=== PATIENT | male | born 1955 | race Caucasian/White ===

== ENCOUNTER 2020-04-27 12:19 | Inpatient (IN) | payer BC, SELFPAY ==
[2020-04-27] VITALS (13 sets, daily range): BP systolic 99–147; BP diastolic 57–91; PULSE 61–105; RESP 16–18; TEMP 36.1–37.1; O2SAT 95–100; BMI 29.2
[2020-04-27 12:40] LABS: Basophils Absolute Auto 0.1 K/mm3 (0.0-0.1); Basophils Percent Auto 1.2 % (0.2-1.2); Eosinophils Absolute Auto 0.4 K/mm3 (0-0.3); Eosinophils Percent Auto 4.9 % (0-4.4); Hematocrit 28.1 % (42.0-52.0); Hemoglobin 9.6 g/dL (14.0-18.0); Immature Granulocyte Absolute 0.11 K/mm3 (0.00-0.031); Immature Granulocyte Percent A 1.2 % (0-0.5); Lymphocytes Absolute Auto 2.34 K/mm3 (0.9-3.2); Lymphocytes Percent Auto 25.9 % (18.3-44.2); Mean Corpuscular HGB Conc 34.2 g/dl (32-36); Mean Corpuscular Hemoglobin 32.1 pg (26-34); Mean Platelet Volume 9.4 fl (7.4-10.4); Monocytes Percent Auto 11.3 % (2.6-8.5); Neutrophils Percent Auto 55.5 % (45.5-73.1); Platelet Count Result 315 k/mm3 (150-375); Red Blood Count 2.99 M/mm3 (4.6-6.20); Red Cell Distribution Width 13.6 % (11.5-14.5)
[2020-04-27 12:49] LABS: INR 0.9; Prothrombin Time 12.4 Seconds (11.1-14.7)
[2020-04-27 12:50] LABS: Partial Thromboplastin Time 23.5 SECONDS (22.3-36.8)
[2020-04-27 12:54] LABS: Alanine Aminotransferase 20 U/L (4-50); Alkaline Phosphatase 70 U/L (38-126); Anion Gap 8 mmol/L (8-16); Aspartate Amino Transferase 30 U/L (17-59); Bilirubin,Total 0.4 mg/dL (0.2-1.3); Blood Urea Nitrogen 19 mg/dL (9-20); Calcium 9.1 mg/dL (8.4-10.2); Carbon Dioxide 27 mmol/L (22-30); Chloride 102 mmol/L (98-107); Estimated CRCL calculation 93 ml/min; Estimated Glomerular Filt Rate > 60; Glucose 100 mg/dL (75-110); Potassium 4.1 mmol/L (3.4-5.0); Sodium 137 mmol/L (137-145)
[2020-04-27] MEDS: SODIUM CHLORIDE 0.9% IV 1,000 ML 999 ML ×2 (13:37→16:12)
--- NOTE | 2020-04-27 15:41 | ED.DIZZY ---
HPI - Dizziness General Chief Complaint: Dizziness Stated Complaint: dizziness, bloody stools Time Seen by Provider: 04/27/20 12:48 Source: patient and family Mode of arrival: ambulatory Limitations: no limitations History of Present Illness HPI Narrative: 64-year-old with no major medical problems here with complaints of rectal bleeding on and off for past few days however for last 2 days he has not had any further bleeding. However since this morning patient complains of dizziness and every time he stands he states that he is tachycardic. Patient reports that he had a colonoscopy done by Dr. Inman in 2017 which was unremarkable. He denies any dark stools or any abdominal pain or chest pain at this time. MD elicited complaint: dizziness Timing: gradual onset Severity: moderate Description: lightheadedness Context: change in body position Exacerbating factors: change in body position and exertion Associated symptoms: denies other symptoms Related Data Home Medications Medication Instructions Recorded Confirmed paroxetine HCl mg PO 04/27/20 prednisone 04/27/20 Allergies Allergy/AdvReac Type Severity Reaction Status Date / Time No Known Allergies Allergy Unknown Verified 04/27/20 12:46 Review of Systems Review of Systems: All systems reviewed & are unremarkable except as noted in HPI and below Constitutional: Constitutional: Reports no additional constitutional complaints Eyes: Eyes: Reports no additional eye complaints ENT: Reports system reviewed and no additional complaints, except as documented Cardiovascular: Cardiovascular: Reports no additional cardiovascular complaints Respiratory: Respiratory: Reports no additional respiratory complaints Gastrointestinal: Gastrointestinal: Reports as per HPI Musculoskeletal: Musculoskeletal: Reports no additional musculoskeletal complaints Neurologic: Reports system reviewed and no additional complaints, except as documented Psychiatric: Psychiatric: Reports no additional psychiatric complaints Hematologic/Lymphatic: Hematologic/Lymphatic: Reports no additional hematologic/lymphatic complaints Allergic/Immunologic: Allergic/Immunologic: Reports no additional allergic/immunologic complaints PMFSH Social History Social History Gender identity (if verbalized by the patient): Male Exam Narrative: Exam Narrative: GENERAL: Well-appearing, well-nourished, and in no acute distress. HEAD: Normocephalic, atraumatic. EYES: PERRLA and EOMI. NECK: Supple. CHEST: Clear to auscultation. No respiratory distress. HEART: Regular rate and rhythm. No murmur heard. Normal peripheral pulses. ABDOMEN: Soft, nontender, nondistended, normal active bowel sounds. EXTREMITIES: Normal range of motion. No edema. SKIN: Warm, dry, no rash. NEURO: No focal deficits. Alert and oriented x3. PSYCH: Normal mood and affect. Course Course Emergency Course: Patient still remained orthostatic even after liter of fluid. He does feel dizzy when he stands up. We will admit him to the hospital for hydration consult GI. Vital Signs Vital signs: Vital Signs Temperature 36.1 C L 04/27/20 12:23 Pulse Rate 105 H 04/27/20 12:23 Respiratory Rate 18 04/27/20 12:23 Blood Pressure 136/81 04/27/20 12:23 Pulse Oximetry 100 04/27/20 12:23 Temperature 36.1 C L 04/27/20 12:23 Pulse Rate 101 H 04/27/20 15:01 Respiratory Rate 16 04/27/20 14:57 Blood Pressure 99/69 L 04/27/20 15:01 Pulse Oximetry 98 04/27/20 14:57 MDM - Dizziness Lab Data Result diagrams: 04/27/20 12:32 04/27/20 12:32 Labs: Lab Results 04/27/20 04/27/20 04/27/20 Range/Units 12:32 12:32 12:32 WBC 9.0 (4.5-10.0) K/mm3 RBC 2.99 L (4.6-6.20) M/mm3 Hgb 9.6 L (14.0-18.0) g/dL Hct 28.1 L (42.0-52.0) % MCV 94.0 (80-100) fl MCH 32.1 (26-34) pg MCHC 34.2 (32-36) g/dl RD
[2020-04-27 16:22] LABS: Hematocrit 24.4 % (42.0-52.0); Hemoglobin 8.3 g/dL (14.0-18.0)
--- NOTE | 2020-04-27 16:28 | PC.NURSE ---
This patient, Brice Manrique, was admitted to Medical Room 344-01. Patient/family oriented to hospital policies and general routines including ID bracelet, bed and alarms, visiting hours, pain management, procedures, bathroom and other care routines, personal items, smoking policy, room service/diet, and visiting hours. Information on how to activate the Rapid Response Team has been discussed. Patient/Family are encouraged to report perceived risks to care and to ask questions if they do not understand what they are told or what they should do.
[2020-04-27] MEDS: SODIUM CHLORIDE 0.9% IV 1,000 ML 125 ML IV CONT (17:48)
[2020-04-27] MEDS: ONDANSETRON INJ 4 MG/2 ML VIAL IV PUSH (19:23)
[2020-04-27 21:52] LABS: Hemoglobin 6.8 g/dL (14.0-18.0)
[2020-04-27 21:53] LABS: Hematocrit 20.5 % (42.0-52.0)
[2020-04-27] MEDS: SODIUM CHLORIDE 0.9% IV 250 ML 30 ML IV CONT (22:35)
[2020-04-28] VITALS (16 sets, daily range): BP systolic 109–163; BP diastolic 64–95; PULSE 67–87; RESP 14–18; TEMP 36.3–37.1; O2SAT 96–100
[2020-04-28 04:30] LABS: Basophils Absolute Auto 0.1 K/mm3 (0.0-0.1); Basophils Percent Auto 0.9 % (0.2-1.2); Eosinophils Absolute Auto 0.4 K/mm3 (0-0.3); Eosinophils Percent Auto 4.8 % (0-4.4); Hematocrit 22.8 % (42.0-52.0); Hemoglobin 7.7 g/dL (14.0-18.0); Immature Granulocyte Absolute 0.09 K/mm3 (0.00-0.031); Immature Granulocyte Percent A 1.2 % (0-0.5); Lymphocytes Absolute Auto 1.78 K/mm3 (0.9-3.2); Lymphocytes Percent Auto 23.7 % (18.3-44.2); Mean Corpuscular HGB Conc 33.8 g/dl (32-36); Mean Corpuscular Volume 94.6 fl (80-100); Mean Platelet Volume 8.7 fl (7.4-10.4); Monocytes Absolute Auto 0.8 K/mm3 (0.1-0.6); Monocytes Percent Auto 10.1 % (2.6-8.5); Neutrophils Absolute Auto 4.4 K/mm3 (1.3-6.7); Neutrophils Percent Auto 59.3 % (45.5-73.1); Platelet Count Result 224 k/mm3 (150-375); Red Blood Count 2.41 M/mm3 (4.6-6.20); Red Cell Distribution Width 14.4 % (11.5-14.5); White Blood Count 7.5 K/mm3 (4.5-10.0)
[2020-04-28 04:47] LABS: Anion Gap 3 mmol/L (8-16); Blood Urea Nitrogen 16 mg/dL (9-20); Calcium 7.7 mg/dL (8.4-10.2); Carbon Dioxide 25 mmol/L (22-30); Chloride 108 mmol/L (98-107); Estimated CRCL calculation 93 ml/min; Estimated Glomerular Filt Rate > 60; Glucose 104 mg/dL (75-110); Sodium 136 mmol/L (137-145)
[2020-04-28] MEDS: SODIUM CHLORIDE 0.9% IV 1,000 ML 125 ML IV CONT (05:56)
--- NOTE | 2020-04-28 08:35 | PM.IMHP ---
H&P: HPI History of Present Illness Date/Time: 04/28/20 08:35 Chief Complaint: Rectal Bleeding Narrative: Brice Manrique is a 64 year old male with history of PMR (on chronic low dose prednisone) who presented to the ED from home on 04/27 with complaints of rectal bleeding since 04/22. Patient states that he had noticed large amounts of bright red blood with each BM starting this past Thursday and Thursday, with it lessoning in amount thereafter. He has two BMs a day, regularly. He states he noticed after Thursday, he continued to have diarrhea with blood and had noticed 1-2 episodes of what he though was dark, tarry stools as well. He also noted becoming tachycardic and dizzy when changing positions, particularly when standing. He stated he discussed with his PCP who tried to arrange for him to get a Colonoscopy, but was unable to make an appointment until May, at which point, prompted him to come into the ER on 04/27 given his continued bleeding and dizziness. He denies any associated abdominal pain, n/v, loss of consciousness. He notes that took NSAIDS (he thinks ibuprofen 400-600 mg daily) regularly up until fairly recently when he was sent to see a heating fixture tender for his PMR. He denies any alcohol use. He denies personal or family history of IBD or colon cancer. His last colonoscopy was in 2018 which he states only polyps were found and removed; denies being told that he had internal/external hemorrhoids or other abnormalities like diverticulosis. No recent change in diet nor recent change in home medications. No other associated symptoms. He is still noticing blood in his stool this morning. He denies f/c/s, headaches, changes in v/h, cp/palpitations, sob/cough, n/v, dysuria, hematuria, cloudy urine, calf pain/swelling. While in the ED, he was found to have hgb of 9.6, then 8.3. He was orthostatic in the ER and symptomatic thus admitted to the hospitalist service for further evaluation. GI (Dr. Maciel) was consulted from the ER for further evaluation. No imaging was done in the ED. Of note, patient's Hgb dropped to 6.8 after arrival to the medical floor and was transfused 1 u pRBC at around 2230 on 04/27. Hgb this morning 7.7. Review of Systems Review of Systems: All systems reviewed & are unremarkable except as noted in HPI and below PMFSH Past Medical History Medical History (Updated 04/28/20 @ 08:51 by Blake Ragland PA-C) PMR (polymyalgia rheumatica) Surgical History Surgical History (Updated 04/28/20 @ 08:51 by Blake Ragland PA-C) History of appendectomy ~1979 History of cholecystectomy ~[id number] Social History Social History Social History: Patient lives at home with his , Prabha, whom he designates as his surrogate MDM. He wishes to be Full Code. His PCP is Dr. Crespo Smoking status: Never smoker Alcohol intake: never Substance use: never Gender identity (if verbalized by the patient): Male Spiritual care concerns: No Meds Home Medications and Allergies Home Medications Medication Instructions Recorded Confirmed Type paroxetine HCl 20 mg PO HS 04/27/20 04/27/20 History prednisone 2.5 mg PO HS 04/27/20 04/27/20 History Allergies Allergy/AdvReac Type Severity Reaction Status Date / Time No Known Allergies Allergy Unknown Verified 04/27/20 12:46 Vital Signs Vital Signs - 24 hr 04/27/20 12:23 04/27/20 13:21 04/27/20 13:23 Temperature 97.0 F L Pulse Rate 105 H 65 72 Respiratory Rate 18 Blood Pressure 136/81 134/88 132/91 H Pulse Oximetry 100 04/27/20 13:25 04/27/20 14:57 04/27/20 15:00 Temperature Pulse Rate 85 78 77 Respiratory Rate 16 Blood Pressure 106/79 117/82 117/72 Pulse Oximetry 98 04/27/20 15:01 04/27/20 16:13 04/27/20 16:30 Temperature 97.4 F L Pulse Rate 101 H 64 68 Respiratory Rate 16 16 Blood Pressure 99/69 L 132/90 147/89 H Pulse Oximetry 97 100 04/27/20 20:
[2020-04-28] MEDS: PARoxetine 20 MG TABLET PO ×2 (09:41→20:49)
--- NOTE | 2020-04-28 11:36 | WPDGICN ---
Assessment and Plan Assessment and plan (1) GI bleed: Code(s): K92.2 - Gastrointestinal hemorrhage, unspecified Status: Acute Assessment and Plan: received blood transfusion, still ongoing bleeding will proceed with egd (recent use of nsaid's and orthostatic) with colonoscopy in the morning (also need to rule out lower gib- no report of diverticulosis per patient) protonix for now and npo after midnight, will order bowel prep later (2) Acute blood loss anemia: Code(s): D62 - Acute posthemorrhagic anemia Status: Acute Assessment and Plan: continue to monitor h/h, already received blood transfusion (3) Orthostatic hypotension: Code(s): I95.1 - Orthostatic hypotension Status: Acute Assessment and Plan: due to gib (4) PMR (polymyalgia rheumatica): Code(s): M35.3 - Polymyalgia rheumatica Status: Acute Assessment and Plan: on low dose steroids, by primary team (5) Adenomatous colon polyp: Code(s): D12.6 - Benign neoplasm of colon, unspecified Status: Acute GI Consult Note Consult date/time: 04/28/20 11:36 Reason for consult: gib HPI: Brice Manrique is a 64 year old male with history of PMR using low dose prednisone (tried leflunomide but did not tolerate and about 4 weeks ago used nsaid's twice daily but discontinued about 2 weeks). He came to ER with almost 6 days of bright red blood per rectum then also noted lose stool, he went to see PCP who arranged to have colonoscopy as outpatient (his last one 2018 at [place] with Dr Madrid that removed polyps and advised to follow up in 2 years). Last few days also has been feeling tachycardic and dizzy when changing positions, particularly when standing. Hb in the ER 9.6, then 6.8 and received blood transfusion last night. He has not had EGD. Still had blood in stools last time used restroom. BUN and liver enzymes normal. Review of Systems Constitutional: Constitutional: Reports fatigue Eyes: Eyes: Reports no additional eye complaints ENT: Reports Normal hearing present Cardiovascular: Cardiovascular: Denies chest pain Respiratory: Respiratory: Denies cough Gastrointestinal: Gastrointestinal: Reports melena and Reports hematochezia Genitourinary: Genitourinary: Denies dysuria Musculoskeletal: Musculoskeletal: Reports arthralgias (chronic, h/o PMR) Integumentary/Breasts: Skin/Breast: Denies pruritus Neurologic: Denies numbness Psychiatric: Psychiatric: Denies anxiety [facility] Past Medical History Medical History (Updated 04/28/20 @ 11:45 by Alonso aGutam MD) Adenomatous colon polyp PMR (polymyalgia rheumatica) Surgical History Surgical History (Updated 04/28/20 @ 08:51 by Blake Ragland PA-C) History of appendectomy ~1979 History of cholecystectomy ~[id number] Social History Social History Social History: Patient lives at home with his , Prabha, whom he designates as his surrogate MDM. He wishes to be Full Code. His PCP is Dr. Crespo Smoking status: Never smoker Alcohol intake: never Substance use: never Gender identity (if verbalized by the patient): Male Spiritual care concerns: No Meds Home Medications and Allergies Home Medications Medication Instructions Recorded Confirmed Type paroxetine HCl 20 mg PO HS 04/27/20 04/27/20 History prednisone 2.5 mg PO HS 04/27/20 04/27/20 History Allergies Allergy/AdvReac Type Severity Reaction Status Date / Time No Known Allergies Allergy Unknown Verified 04/27/20 12:46 Vital Signs Vital Signs - 24 hr 04/27/20 12:23 04/27/20 13:21 04/27/20 13:23 Temperature 97.0 F L Pulse Rate 105 H 65 72 Respiratory Rate 18 Blood Pressure 136/81 134/88 132/91 H Pulse Oximetry 100 04/27/20 13:25 04/27/20 14:57 04/27/20 15:00 Temperature Pulse Rate 85 78 77 Respiratory Rate 16 Blood Pressure 106/79 117/82
--- NOTE | 2020-04-28 12:19 | WPDANESEPP ---
Anes - Eval Pre Procedure Procedure: EGD/Colonoscopy Date/Time: 04/28/20 12:19 Surgeon: Fam Preop Diagnosis: GI Bleed Pre Op Diagnosis: dizziness/orthostatic hypotension/rectal bleed Patient Data Age: 64 Gender: M Height: 6 ft 1 in Weight: 100.5 kg Last Vital Signs Temp 36.8 C 04/28/20 04:26 Pulse 82 04/28/20 04:26 Resp 16 04/28/20 04:26 BP 120/76 04/28/20 08:14 Pulse Ox 96 04/28/20 04:26 Allergies Allergy/AdvReac Type Severity Reaction Status Date / Time No Known Allergies Allergy Unknown Verified 04/27/20 12:46 Home Medications Medication Instructions Recorded Confirmed Type paroxetine HCl 20 mg PO HS 04/27/20 04/27/20 History prednisone 2.5 mg PO HS 04/27/20 04/27/20 History Laboratory Tests 04/27/20 04/27/20 04/27/20 12:32 12:32 12:32 WBC 9.0 K/mm3 K/mm3 (4.5-10.0) RBC 2.99 M/mm3 L M/mm3 (4.6-6.20) Hgb 9.6 g/dL L g/dL (14.0-18.0) Hct 28.1 % L % (42.0-52.0) MCV 94.0 fl fl (80-100) MCH 32.1 pg pg (26-34) MCHC 34.2 g/dl g/dl (32-36) RDW 13.6 % % (11.5-14.5) Plt Count 315 k/mm3 k/mm3 (150-375) MPV 9.4 fl fl (7.4-10.4) Immature Gran % (Auto) 1.2 % H % (0-0.5) Neut % (Auto) 55.5 % % (45.5-73.1) Lymph % (Auto) 25.9 % % (18.3-44.2) [place] % (Auto) 11.3 % H % (2.6-8.5) Eos % (Auto) 4.9 % H % (0-4.4) Baso % (Auto) 1.2 % % (0.2-1.2) Lymph # (Auto) 2.34 K/mm3 K/mm3 (0.9-3.2) [place] # (Auto) 1.0 K/mm3 H K/mm3 (0.1-0.6) Eos # (Auto) 0.4 K/mm3 H K/mm3 (0-0.3) Baso # (Auto) 0.1 K/mm3 K/mm3 (0.0-0.1) Abs Immat Gran (auto) 0.11 K/mm3 H K/mm3 (0.00-0.031) Absolute Neuts (auto) 5.0 K/mm3 K/mm3 (1.3-6.7) Absolute Nucleated RBC 0.0 K/mm3 K/mm3 (0.0-0.012) Nucleated RBC % 0.0 % % (0.0-0.2) PT 12.4 Seconds Seconds (11.1-14.7) INR 0.9 APTT 23.5 SECONDS SECONDS (22.3-36.8) Sodium 137 mmol/L mmol/L (137-145) Potassium 4.1 mmol/L mmol/L (3.4-5.0) Chloride 102 mmol/L mmol/L (98-107) Carbon Dioxide 27 mmol/L mmol/L (22-30) Anion Gap 8 mmol/L mmol/L (8-16) BUN 19 mg/dL mg/dL (9-20) Creatinine 0.80 mg/dL mg/dL (0.7-1.3) Estim Creat Clear Calc 93 ml/min ml/min Estimated GFR > 60 (59 - ) Glucose 100 mg/dL mg/dL (75-110) Calcium 9.1 mg/dL mg/dL (8.4-10.2) Total Bilirubin 0.4 mg/dL mg/dL (0.2-1.3) AST 30 U/L U/L (17-59) ALT 20 U/L U/L (4-50) Alkaline Phosphatase 70 U/L U/L (38-126) Total Protein 7.0 g/dL g/dL (6.3-8.2) Albumin 4.0 g/dL g/dL (3.5-5.1) Blood Type Antibody Screen Crossmatch 04/27/20 04/27/20 04/27/20 12:32 16:14 21:46 WBC RBC Hgb 8.3 g/dL L g/dL 6.8 g/dL L* g/dL (14.0-18.0) (14.0-18.0) Hct 24.4 % L % 20.5 % L* % (42.0-52.0) (42.0-52.0) MCV MCH MCHC RDW Plt Count MPV Immature Gran % (Auto) Neut % (Auto) Lymph % (Auto) [place] % (Auto) Eos % (Auto) Baso % (Auto) Lymph # (Auto) [place] # (Auto) Eos # (Auto) Baso # (Auto) Abs Immat Gran (auto) Absolute Neuts (auto) Absolute Nucleated RBC Nucleated RBC % PT INR APTT Sodium Potassium Chloride Carbon Dioxide Anion Gap BUN Creatinine Estim Creat Clear Calc Estimated GFR
[2020-04-28 12:34] LABS: Hematocrit 21.1 % (42.0-52.0); Hemoglobin 7.1 g/dL (14.0-18.0)
[2020-04-28] MEDS: SODIUM CHLORIDE 0.9% IV 1,000 ML 100 ML IV CONT (15:08)
[2020-04-28] MEDS: PEG (High)/E-LYTE SOLN 4,000 ML BTL 4000 ML PO (15:08)
[2020-04-28] MEDS: SODIUM CHLORIDE 0.9% IV 250 ML 30 ML IV CONT (17:26)
[2020-04-28] MEDS: PANTOPRAZOLE SODIUM IV 40 MG VIAL IV PUSH (20:49)
[2020-04-28] MEDS: ONDANSETRON INJ 4 MG/2 ML VIAL IV PUSH (20:49)
[2020-04-28 21:55] LABS: Hematocrit 25.7 % (42.0-52.0); Hemoglobin 8.6 g/dL (14.0-18.0)
[2020-04-29] VITALS (7 sets, daily range): BP systolic 97–124; BP diastolic 62–82; PULSE 60–70; RESP 16–22; TEMP 36.3–36.6; O2SAT 95–100
[2020-04-29 00:47] LABS: Hematocrit 22.8 % (42.0-52.0); Hemoglobin 7.7 g/dL (14.0-18.0)
[2020-04-29] MEDS: MAGNESIUM CITRATE 300 ML BTL PO (02:55)
[2020-04-29] MEDS: SODIUM CHLORIDE 0.9% IV 1,000 ML 100 ML IV CONT (06:01)
[2020-04-29 06:18] LABS: Basophils Absolute Auto 0.1 K/mm3 (0.0-0.1); Basophils Percent Auto 1.3 % (0.2-1.2); Eosinophils Absolute Auto 0.4 K/mm3 (0-0.3); Eosinophils Percent Auto 5.9 % (0-4.4); Hematocrit 25.1 % (42.0-52.0); Hemoglobin 8.2 g/dL (14.0-18.0); Immature Granulocyte Absolute 0.05 K/mm3 (0.00-0.031); Immature Granulocyte Percent A 0.8 % (0-0.5); Lymphocytes Absolute Auto 1.39 K/mm3 (0.9-3.2); Lymphocytes Percent Auto 23.3 % (18.3-44.2); Mean Corpuscular HGB Conc 32.7 g/dl (32-36); Mean Corpuscular Hemoglobin 31.1 pg (26-34); Mean Corpuscular Volume 95.1 fl (80-100); Mean Platelet Volume 9.3 fl (7.4-10.4); Monocytes Absolute Auto 0.8 K/mm3 (0.1-0.6); Monocytes Percent Auto 13.6 % (2.6-8.5); Neutrophils Absolute Auto 3.3 K/mm3 (1.3-6.7); Neutrophils Percent Auto 55.1 % (45.5-73.1); Platelet Count Result 218 k/mm3 (150-375); Red Blood Count 2.64 M/mm3 (4.6-6.20); Red Cell Distribution Width 15.4 % (11.5-14.5)
[2020-04-29 06:41] LABS: Anion Gap 5 mmol/L (8-16); Blood Urea Nitrogen 8 mg/dL (9-20); Calcium 8.3 mg/dL (8.4-10.2); Carbon Dioxide 24 mmol/L (22-30); Chloride 110 mmol/L (98-107); Estimated CRCL calculation 93 ml/min; Estimated Glomerular Filt Rate > 60; Glucose 102 mg/dL (75-110); Magnesium 2.3 mg/dL (1.6-2.3); Potassium 3.8 mmol/L (3.4-5.0); Sodium 139 mmol/L (137-145)
[2020-04-29] MEDS: LACTATED RINGERS 1,000 ML 150 ML IV CONT (07:14)
--- NOTE | 2020-04-29 07:14 | PC.NURSE ---
GI here to transport patient for procedure. 0705.
--- NOTE | 2020-04-29 08:04 | WPDANESEFPP ---
Anes - Eval Final PreProcedure Day of Procedure 04/29/20 08:04 Patient weight: overweight Heart: regular rate and rhythm Lungs: clear to auscultation Airway: Mallampati scale class II Neurological: alert and oriented Last oral intake: >/= 8 hours ASA classification: III Emergent: no Anesthetic plan: proceed Anesthesia type and monitoring: general GIVS and standard monitoring Informed Consent: The patient's anesthetic plan and its attendant risks and benefits were discussed with the patient/family/POA. Questions were solicited and answers provided to the satisfaction of the patient/family/POA.
[2020-04-29 12:15] LABS: Hematocrit 25.2 % (42.0-52.0); Hemoglobin 8.3 g/dL (14.0-18.0)
--- NOTE | 2020-04-29 12:20 | PM.DS ---
DS: Admitting Diagnosis Admitting Diagnosis Admitting Diagnosis: GI bleed, acute blood loss anemia DS: Discharge Diagnosis Discharge Diagnosis (1) GI bleed: Code(s): K92.2 - Gastrointestinal hemorrhage, unspecified Status: Acute Assessment and Plan: Patient has rectal bleeding with what sounds like episode(s) of melena as well. He recently stopped taking NSAIDs regularly but could not tell me a date. On chronic steroids for PMR. He denies any alcohol use. Last colonoscopy was 2017 and only found benign polyps per patient. Dr. Maciel consulted from ED. He was symptomatically orthostatic in ED; no longer orthostatic. EGD/Colonoscopy performed 04/[address] Maciel - two polyps removed, and multiple diverticula and tiny internal hemorrhoid in rectum; diverticula felt to be most likely source of bleeding; EGD unremarkable. H&H has been stable since this morning. No reports of further bleeding per patient. Okay for discharge from GI standpoint. discharge home today F/u with PCP and GI per recommendations Rec no nsaids High fiber diet recommended (2) Acute blood loss anemia: Code(s): D62 - Acute posthemorrhagic anemia Status: Acute Assessment and Plan: Transfused 2 u pRBC during stay. Patient's hgb has dropped to 6.8 on 04/27 and was transfused 1 u pRBC 04/27. Hgb dropped to 7.1 afternoon of 04/28 and was transfused 1 more unit pRBC 04/28. H&H now stable at 8.3/25.2 this afternoon. No reports of further bleeding. Likely secondary to above okay for discharge from GI standpoint Will do H&H in 1 week. Further care per PCP (3) PMR (polymyalgia rheumatica): Code(s): M35.3 - Polymyalgia rheumatica Status: Acute Assessment and Plan: On chronic low dose prednisone Will resume per GI rec DS: Summary Hospital Course Reason for hospitalization: Acute blood loss anemia due to GI bleed Hospital Course: Date of arrival: 04/27/20 Date of discharge: 04/29/20 From H&P on 04/28/20: Brice Manrique is a 64 year old male with history of PMR (on chronic low dose prednisone) who presented to the ED from home on 04/27 with complaints of rectal bleeding since 04/22. Patient states that he had noticed large amounts of bright red blood with each BM starting this past Thursday and Thursday, with it lessoning in amount thereafter. He has two BMs a day, regularly. He states he noticed after Thursday, he continued to have diarrhea with blood and had noticed 1-2 episodes of what he though was dark, tarry stools as well. He also noted becoming tachycardic and dizzy when changing positions, particularly when standing. He stated he discussed with his PCP who tried to arrange for him to get a Colonoscopy, but was unable to make an appointment until May, at which point, prompted him to come into the ER on 04/27 given his continued bleeding and dizziness. He denies any associated abdominal pain, n/v, loss of consciousness. He notes that took NSAIDS (he thinks ibuprofen 400-600 mg daily) regularly up until fairly recently when he was sent to see a calender machine operator helper for his PMR. He denies any alcohol use. He denies personal or family history of IBD or colon cancer. His last colonoscopy was in 2018 which he states only polyps were found and removed; denies being told that he had internal/external hemorrhoids or other abnormalities like diverticulosis. No recent change in diet nor recent change in home medications. No other associated symptoms. He is still noticing blood in his stool this morning. He denies f/c/s, headaches, changes in v/h, cp/palpitations, sob/cough, n/v, dysuria, hematuria, cloudy urine, calf pain/swelling. While in the ED, he was found to have hgb of 9.6, then 8.3. He was orthostatic in the ER and symptomatic thus admitted to the hospitalist service for further evaluation. GI (Dr. Maciel) was c
== END 2020-04-29 13:26 | disposition home or self-care (01) | DRG 378 ==
LOC: ANHED 16:04 → ANH3MED 16:13
PROVIDERS: Internal Medicine Gastroenterology; Physician Assistant; Admitting Provider Internal Medicine; Emergency Provider Family Medicine; PCP Internal Medicine; Visit Provider Internal Medicine
PROC: 0DJ08ZZ Inspection of Upper Intestinal Tract, Via Natural or Artificial Opening Endoscopic (ICD-10-PCS; CPT 43235; principal; 2020-04-29 08:00)
DX: K57.31 Diverticulosis of large intestine without perforation or abscess with bleeding (principal); D62 Acute posthemorrhagic anemia; I95.1 Orthostatic hypotension; M35.3 Polymyalgia rheumatica; D12.6 Benign neoplasm of colon, unspecified; K64.8 Other hemorrhoids; Z90.49 Acquired absence of other specified parts of digestive tract
CPT/HCPCS: 36415; 36430; 80048; 80053; 83735; 85014; 85018; 85025; 85610; 85730; 86850; 86900; 86901; 86923; 88305; 96361; 96374; 99285; A9270; C9113; G0378; J2370; J2405; J2704; J7030; J7050; J7120; P9016

== ENCOUNTER 2022-07-07 08:30 | Outpatient (RCR) | payer BC, MEDICARE, OTHER, SELFPAY | END 2022-07-09 14:51 | disposition home or self-care (01) | LOC: ANHCPREHAB 08:30 | PROVIDERS: PCP Internal Medicine | DX: Z95.5 Presence of coronary angioplasty implant and graft (principal) | CPT/HCPCS: 93798 ==

== ENCOUNTER 2023-12-14 13:52 | Outpatient (CLI) | payer MEDICARE, OTHER, SELFPAY ==
[2023-12-14 14:59] LABS: Basophils Absolute Auto 0.1 K/mm3 (0.0-0.1); Basophils Percent Auto 0.9 % (0.2-1.2); Eosinophils Absolute Auto 0.4 K/mm3 (0-0.3); Eosinophils Percent Auto 6.7 % (0-4.4); Hematocrit 44.8 % (42.0-52.0); Hemoglobin 15.7 g/dL (14.0-18.0); Immature Granulocyte Absolute 0.01 K/mm3 (0.00-0.031); Immature Granulocyte Percent A 0.2 % (0-0.5); Lymphocytes Absolute Auto 1.99 K/mm3 (0.9-3.2); Lymphocytes Percent Auto 30.9 % (18.3-44.2); Mean Corpuscular Hemoglobin 33.5 pg (26-34); Mean Corpuscular Volume 95.7 fl (80-100); Mean Platelet Volume 10.4 fl (7.4-10.4); Monocytes Absolute Auto 0.5 K/mm3 (0.1-0.6); Monocytes Percent Auto 7.6 % (2.6-8.5); Neutrophils Absolute Auto 3.5 K/mm3 (1.3-6.7); Neutrophils Percent Auto 53.7 % (45.5-73.1); Platelet Count Result 232 k/mm3 (150-375); Red Blood Count 4.68 M/mm3 (4.6-6.20); Red Cell Distribution Width 12.6 % (11.5-14.5); White Blood Count 6.4 K/mm3 (4.5-10.0)
[2023-12-14 15:16] LABS: Rheumatoid Factor < 12.0 IU/ML (<12)
[2023-12-14 15:17] LABS: CRP < 0.5 mg/dL (<1.0); Uric Acid 7.4 mg/dL (3.5-8.5)
[2023-12-14 17:34] LABS: Erythrocyte Sedimentation Rate 6 mm/hr (0-20)
[2023-12-16 14:19] LABS: Anti Cyclic Citrullinated Pept <16 UNITS
== END 2023-12-14 13:53 | disposition home or self-care (01) ==
PROVIDERS: PCP Hospitalist; Visit Provider Orthopaedic Surgery
DX: M79.89 Other specified soft tissue disorders (principal)
CPT/HCPCS: 36415; 84550; 85025; 85652; 86038; 86039; 86140; 86200; 86430

== ENCOUNTER 2023-12-16 12:22 | Outpatient (CLI) | payer MEDICARE, OTHER, SELFPAY ==
--- NOTE | 2023-12-16 12:42 | ECG_ITS ---
Test Date: 2023-12-16 12:55:05 Measurements Intervals [place] Rate: 52 P: 55 [place]: 177 QRS: -28 QRSD: 122 T: 139 QT: 412 QTc: 384 Interpretive Statements SINUS BRADYCARDIA BORDERLINE LEFT AXIS DEVIATION [QRS AXIS < -20] MODERATE INTRAVENTRICULAR CONDUCTION DELAY [110+ ms QRS DURATION] MINIMAL VOLTAGE CRITERIA FOR LVH, CONSIDER NORMAL VARIANT [MEETS CRITERIA IN ONE OF: R(aVL), S(V1), R(V5), R(V5/V6)+S(V1)] ST DEVIATION AND MODERATE T-WAVE ABNORMALITY, CONSIDER LATERAL ISCHEMIA [-0.1+ mV T WAVE IN I/aVL/V5/V6] No previous ECG available for comparison Electronically Signed On 12-16-2023 17:13:37 CDT by Chani Sherwood M.D.
== END 2023-12-16 12:23 | disposition home or self-care (01) ==
PROVIDERS: PCP Hospitalist; Visit Provider Orthopaedic Surgery
DX: I25.10 Atherosclerotic heart disease of native coronary artery without angina pectoris (principal); Z01.818 Encounter for other preprocedural examination; I45.9 Conduction disorder, unspecified
CPT/HCPCS: 93005

== ENCOUNTER 2023-12-17 02:38 | Day surgery (SDC) | payer MEDICARE, OTHER, SELFPAY ==
[2023-12-15 14:11] VITALS: BMI 30.8
--- NOTE | 2023-12-15 14:39 | PC.NURSE ---
Report to the Outpatient Waiting Room, entrance under the green pavilion located off [facility], at time ____09:30am___ on date _12/17/23 . Planned Procedure Time: _11:30am . Time changes happen often and if your time is changed the preop area will call you the afternoon before. - You and your visitor will be asked to self-screen and do not enter if you have any COVID symptoms. - A mask is optional within the hospital at this time. Patients may have clear liquids (water, carbonated beverages, clear teas, apple juice) until 3 hours prior to surgery ( with a maximum of 20 ounces. - No food from midnight until time of surgery Take the following medications with a SIP of water the morning of surgery: ____Amlodipine DO NOT STOP ANY OF YOUR OTHER PRESCRIPTION MEDICATIONS PRIOR TO SURGERY ?EXCEPT THE FOLLOWING Medications to discontinue per physician Hold Plavix 7 days prior to surgery per Dr. Lopez _ Date to take last dose 12/09/23 Please no make-up, nail divehi, hairspray, perfume, deodorant, or body powder the day of surgery. No jewelry (including any body piercings) or valuables the day of surgery, leave them at home. Please take a shower or bath the night before, or the morning of, surgery with an antibacterial soap. Wear comfortable, loose fitting clothing. - Jewelry must be removed prior to entering the operating room. Rings and piercings that are not removed may be cut off. - The hospital will not accept responsibility for valuables. - Please leave all valuables, including medications, at home the day of surgery. If you are going home after surgery, a licensed refrigerated national truck driver must drive you home. - NO public transportation without another adult if you receive anesthesia. - We recommend that an adult stay with you for 24 hours following discharge. - We also recommend that you do not drive, make important decision, drink alcoholic beverages, or take any drugs that were not prescribed by your health care provider for at least 24 hours after your discharge time. Follow any additional instructions given to you from your surgeon. If you or anyone in your household have experienced Covid symptoms in the past week, please notify your surgeon or the nurse liaison at the phone number below for possible testing. Telephone instructions given to _patient and asked if any additional questions and then verbalized understanding. Patient advised to call surgeon office or pre surgery nurse liaison [phone] if any additional questions.
--- NOTE | 2023-12-16 12:50 | PM.IMHP ---
H&P: HPI History of Present Illness Date/Time: 12/16/23 12:50 Chief Complaint: Right carpal tunnel syndrome Narrative: 68-year-old male who presents today for a right carpal tunnel release. He has been having symptoms of numbness and tingling in both hands since July of 2018. He had a nerve conduction velocity test done April of 2018 which showed carpal tunnel syndrome on the right wrist. EMG portion was normal. At this point his symptoms were tolerable and he declined any surgical intervention. Patient has had 9 months of constant numbness and tingling in the index and long finger in the right hand. He will awaken at night with painful burning in these 2 fingers as well as the thumb. He has tried wrist splints at night without significant improvement of his symptoms. At this point patient feels he would like to proceed with carpal tunnel release on the right hand. Review of Systems Review of Systems: All systems reviewed & are unremarkable except as noted in HPI and below PMFSH Past Medical History Medical History (Updated 12/14/23 @ 13:45 by Leonardo Krueger MD) Adenomatous colon polyp Orthostatic hypotension (~12/14/23) PMR (polymyalgia rheumatica) Surgical History Surgical History History of appendectomy ~1979 History of cholecystectomy ~2483-0815 History of heart artery stent Family History Family History (Updated 12/14/23 @ 13:11 by GREGORY Garnett) Sibling Cardiomyopathy Diabetes mellitus Father Emphysema lung Mother No problems noted. Social History Social History (Updated 12/14/23 @ 13:12 by GREGORY Garnett) Social History: Patient lives at home with his , Prabha, whom he designates as his surrogate MDM. He wishes to be Full Code. His PCP is Dr. 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 Gender identity (if verbalized by the patient): Male Spiritual care concerns: No Meds Home Medications and Allergies Home Medications Medication Instructions Recorded Confirmed Type paroxetine HCl 20 mg tablet 20 mg PO HS 04/27/20 12/15/23 History amlodipine 5 mg tablet 5 mg PO DAILY 11/09/23 12/15/23 History aspirin 81 mg chewable tablet 81 mg PO DAILY 11/09/23 12/15/23 History atorvastatin 40 mg tablet 40 mg PO DAILY 11/09/23 12/15/23 History clopidogrel 75 mg tablet 75 mg PO DAILY 11/09/23 12/15/23 History ezetimibe 10 mg tablet 10 mg PO DAILY 11/09/23 12/15/23 History methylprednisolone 4 mg tablets in See Rx Instructions PO PER PKG DIR 12/14/23 12/15/23 Rx a dose pack (Medrol (Babar)) #1 ea Allergies Allergy/AdvReac Type Severity Reaction Status Date / Time No Known Allergies Allergy Unknown Verified 12/15/23 14:07 Exam Narrative: 68-year-old male alert pleasant. No redness or warmth or swelling in the right hand her wrist. He has full range of motion of the wrist and fingers. He reports tingling to light touch sensation to the thumb, index, alone and ring finger. He has normal sensation of the 5th finger and then to the dorsum of the hand. Two point discrimination is greater than 8/8 mm, 5/5 mm, 5/8 mm, 7/5 mm, 5/5 mm. He has a negative Tinel's over the carpal tunnel. Positive carpal tunnel compression test which immediately caused i
[2023-12-17] MEDS: ACETAMINOPHEN 500 MG TABLET 1000 MG PO (06:19)
--- NOTE | 2023-12-17 06:39 | WPDANESEPPF ---
Anes - Initial Pre Proc Eval Procedure: Operation Date: 12/17/23 07:30 Proposed Procedures p Right Carpal Tunnel Release - Leonardo Krueger MD Date/Time: 12/17/23 06:39 Surgeon: Leonardo Krueger MD Pre Op Diagnosis: Rt Carpal Tunnel Syndrome Patient Data Age: 68 Gender: M Height: 1.85 m Weight: 106 kg Allergies Allergy/AdvReac Type Severity Reaction Status Date / Time No Known Allergies Allergy Unknown Verified 12/17/23 06:10 Home Medications Medication Instructions Recorded Confirmed Type paroxetine HCl 20 mg tablet 20 mg PO HS 04/27/20 12/17/23 History amlodipine 5 mg tablet 5 mg PO DAILY 11/09/23 12/17/23 History aspirin 81 mg chewable tablet 81 mg PO DAILY 11/09/23 12/17/23 History atorvastatin 40 mg tablet 40 mg PO DAILY 11/09/23 12/17/23 History clopidogrel 75 mg tablet 75 mg PO DAILY 11/09/23 12/17/23 History ezetimibe 10 mg tablet 10 mg PO DAILY 11/09/23 12/17/23 History methylprednisolone 4 mg tablets in See Rx Instructions PO PER PKG DIR 12/14/23 12/17/23 Rx a dose pack (Medrol (Babar)) #1 ea Patient hx anesthesia problems: none Family hx anesthesia problems: none Results Review: All pre-operative results and documents have been reviewed as part of the pre-operative evaluation. [facility] Past Medical History Medical History (Updated 12/17/23 @ 06:39 by Garry Smith MD) Adenomatous colon polyp CAD (coronary artery disease) Obesity Orthostatic hypotension (~12/14/23) PMR (polymyalgia rheumatica) Surgical History Surgical History History of appendectomy ~1979 History of cholecystectomy ~[id number] History of heart artery stent Family History Family History Sibling Cardiomyopathy Diabetes mellitus Father Emphysema lung Mother No problems noted. Social History Social History Social History: Patient lives at home with his , Prabha, whom he designates as his surrogate MDM. He wishes to be Full Code. His PCP is Dr. 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 Gender identity (if verbalized by the patient): Male Spiritual care concerns: No Anes - Eval Final PreProcedure Day of Procedure 12/17/23 06:39 Patient weight: obese Heart: regular rate and rhythm Lungs: clear to auscultation Airway: Mallampati scale class II Neurological: alert and oriented Last oral intake: >/= 8 hours ASA classification: III Emergent: no Anesthetic plan: proceed Anesthesia type and monitoring: general GIVS and standard monitoring Results Review: All pre-operative results and documents have been reviewed as part of the pre-operative evaluation. Informed Consent: The patient's anesthetic plan and its attendant risks and benefits were discussed with the patient/family/POA. Questions were solicited and answers provided to the satisfaction of the patient/family/POA.
[2023-12-17 06:41] VITALS: BP 137/88; PULSE 58; RESP 16; TEMP 36.5; O2SAT 98
[2023-12-17] MEDS: LACTATED RINGERS 1,000 ML 30 ML IV CONT (06:51)
[2023-12-17] MEDS: KETOROLAC 15 MG/ML VIAL (*BKC) IV PUSH (07:11)
--- NOTE | 2023-12-17 07:15 | WPDHPUPDATE1 ---
History and Physical Update Update Date/Time: 12/17/23 07:15 History and Physical has been reviewed, including an updated exam of the patient. There are NO changes in the patient's condition. Risks, benefits, and alternatives have been discussed and questions answered. Patient agrees to proceed with procedure.
[2023-12-17] MEDS: ceFAZolin 2 GM/D5W 50 ML 2 GM/50 ML BAG IVPB (07:23)
[2023-12-17] MEDS: LIDO 1%/EPINEPHRINE 1:100,000 50 ML VIAL 10 ML INFILTRATE (07:48)
[2023-12-17 08:14] VITALS: BP 98/63; PULSE 60; RESP 12; O2SAT 91
--- NOTE | 2023-12-17 08:15 | P.OP_ITS ---
Procedure Note - Detailed Date of Procedure 12/17/23 Pre-op Diagnosis Rt Carpal Tunnel Syndrome Post-op Diagnosis Same Procedure Performed Right carpal tunnel release Surgeon Leonardo Krueger MD [facility] [employer] [facility] Description of Procedure Patient was brought to the operating room and he was heavily sedated. The right arm was prepped draped usual fashion. He received 2 g Ancef preoperatively. Local anesthesia was administered with 1% lidocaine with epinephrine 4 cc. Limb was exsanguinated tourniquet elevated to 225 mmHg. A 2.5 cm incision was made at the base of the palm in line with the radial border the 4th ray. Dissection was carried down through the superficial palmar fascia the transverse carpal ligament which was longitudinally incised. Complete release was achieved distally. Proximally a subcutaneous fat was elevated off the distal volar forearm fascia a Fritch elevator passed underneath the fascia to separate from the underlying nerve. The fascia was then split for a distance of 3 cm proximal to the incision completing the decompression. The nerve was inspected. It showed hyperemia even with the tourniquet up localized to the area under the proximal aspect of the transverse carpal ligament but no obvious indentation. There is no evidence of hypertrophic tenosynovitis. Tourniquet was released hemostasis was achieved wound irrigated and skin closed with 4 0 nylon and a soft bulky dressing applied the patient transferred to postop recovery room good condition. Tourniquet time 9 minutes. No complications. [facility] Billing Surgery - Charge Forward: Surgery Billing (Right carpal tunnel release)
[2023-12-17 08:30] VITALS: BP 119/80; PULSE 58; RESP 14; O2SAT 97
[2023-12-17 09:00] VITALS: BP 132/85; PULSE 55; RESP 14
== END 2023-12-17 09:15 | disposition home or self-care (01) ==
PROVIDERS: PCP Hospitalist; Visit Provider Orthopaedic Surgery
PROC: (CPT 64721; principal; 2023-12-17 07:30)
DX: G56.01 Carpal tunnel syndrome, right upper limb (principal); I95.1 Orthostatic hypotension; I25.10 Atherosclerotic heart disease of native coronary artery without angina pectoris; M35.3 Polymyalgia rheumatica; E66.9 Obesity, unspecified; Z68.30 Body mass index [BMI] 30.0-30.9, adult; Z79.82 Long term (current) use of aspirin; Z79.02 Long term (current) use of antithrombotics/antiplatelets; Z98.890 Other specified postprocedural states; Z90.49 Acquired absence of other specified parts of digestive tract; Z95.5 Presence of coronary angioplasty implant and graft; Z86.010 Personal history of colon polyps; Z82.49 Family history of ischemic heart disease and other diseases of the circulatory system
CPT/HCPCS: 64721; A9270; J0690; J1100; J1885; J2250; J2405; J2704; J3010; J7120

== ENCOUNTER 2024-01-29 19:51 | Inpatient (IN) | payer MEDICARE, OTHER, SELFPAY ==
--- NOTE | ~2024-01-29 | CT_ITS ---
CT abdomen pelvis w con Ordering provider: Jenifer Cornelius PA-C History: 68 years Male with . abdominal pain, fever . Comparison: None. Technique: CT abdomen and pelvis with IV and without oral contrast. Automated exposure control and it erative reconstruction technique were employed. The dose-length product was 1260.27 mGy-cm. 100 mL Om nipaque 350 was given IV. Findings: VISUALIZED LOWER CHEST: Dependent atelectatic changes. UPPER ABDOMINAL ORGANS: Liver: Normal. Gallbladder: Status post cholecystectomy. Spleen: Normal. Stomach/duodenum: Small duodenal diverticulum is seen. Pancreas: Normal. Adrenals: Normal. Kidneys: Normal. PELVIC ORGANS: The bladder is normal. BOWEL AND MESENTERY: Colon: Mild sigmoid diverticulosis without diverticulitis. The appendix is not demonstrated. Small Bowel: No obstruction. Fluid collection seen in the left side of the abdomen which measures 3.9 x 4.1 cm with thickened wall which raises the possibility also of dilated small bowel with inflammat ion in the wall is not excluded. Inflammation in a diverticulum also is is not excluded. Surrounding minimal air is seen Peritoneum/mesentery: No free air. Trace of free fluid is seen in the pelvis. No mesenteric lymphaden opathy. RETROPERITONEUM: Mild atheromatous disease of the abdominal aorta. No retroperitoneal lymphadenopat hy. MUSCULOSKELETAL: Superficial soft tissues: The superficial soft tissues are normal. Bones: Age appropriate degenerative changes of the spine. IMPRESSION: 1. Collection is seen in the left side of the abdomen which may be inflammatory in small bowel with thickened wall versus diverticulum with inflammatory changes versus an abscess with fistula with the small bowel. The last choice is the most probable. Small surrounding air is seen which may indicate f ocal perforation. 2. Trace of free fluid in the pelvis. Reviewed, dictated and finalized at location A. IMPRESSION: 1. Collection is seen in the left side of the abdomen which may be inflammator y in small bowel with thickened wall versus diverticulum with inflammatory lima ges versus an abscess with fistula with the small bowel. The last choice is the most probable. Small surrounding air is seen which may indicate focal perforat ion. 2. Trace of free fluid in the pelvis.
--- NOTE | ~2024-01-29 | XR_ITS ---
XR chest 2V Ordering provider: Jenfier Cornelius PA-C History: 68 years Male with . fever, nausea and vomiting . Comparison: None. FINDINGS: MEDIASTINUM: The cardiac silhouette is slightly enlarged. Congestive cyndi. LUNGS: No infiltrates, effusions or pneumothorax. Stone in the right suprahilar area which may be a nodule. Follow-up in 3 months is advised. OTHER: No free air under the diaphragm. Degenerative spine. IMPRESSION: No acute cardiopulmonary pathology. Possible nodule in the right suprahilar area. Three-month follow-up advised. Reviewed, dictated and finalized at location A.
[2024-01-29 19:57] VITALS: BP 120/84; PULSE 85; RESP 26; TEMP 38.5; O2SAT 94
--- NOTE | 2024-01-29 20:01 | ECG_ITS ---
Test Date: 2024-01-29 20:05:42 Measurements Intervals Purcell Rate: 85 P: 24 VA: 161 QRS: -37 QRSD: 107 T: 79 QT: 364 QTc: 433 Interpretive Statements SINUS RHYTHM LEFT AXIS DEVIATION BORDERLINE ST-T WAVE ABNORMALITY- HIGH LATERAL LEADS BASELINE WANDER- V1-V2 BORDERLINE ECG Compared to ECG 12/16/2023 12:55:05 HEART RATE HAS INCREASED Electronically Signed On 01-30-2024 07:47:36 CDT by Luís Saeed D.O.
[2024-01-29 20:06] VITALS: BP 120/81; PULSE 82; RESP 14; TEMP 36.7; O2SAT 94
[2024-01-29 20:14] LABS: Basophils Absolute Auto 0.1 K/mm3 (0.0-0.1); Basophils Percent Auto 0.7 % (0.2-1.2); Eosinophils Absolute Auto 0.2 K/mm3 (0-0.3); Eosinophils Percent Auto 1.8 % (0-4.4); Hematocrit 41.6 % (42.0-52.0); Hemoglobin 14.6 g/dL (14.0-18.0); Immature Granulocyte Absolute 0.07 K/mm3 (0.00-0.031); Immature Granulocyte Percent A 0.5 % (0-0.5); Lymphocytes Absolute Auto 2.28 K/mm3 (0.9-3.2); Lymphocytes Percent Auto 17.2 % (18.3-44.2); Mean Corpuscular HGB Conc 35.1 g/dl (32-36); Mean Corpuscular Hemoglobin 32.9 pg (26-34); Mean Corpuscular Volume 93.7 fl (80-100); Mean Platelet Volume 9.4 fl (7.4-10.4); Monocytes Absolute Auto 1.1 K/mm3 (0.1-0.6); Monocytes Percent Auto 8.1 % (2.6-8.5); Neutrophils Absolute Auto 9.5 K/mm3 (1.3-6.7); Neutrophils Percent Auto 71.7 % (45.5-73.1); Platelet Count Result 306 k/mm3 (150-375); Red Blood Count 4.44 M/mm3 (4.6-6.20); Red Cell Distribution Width 12.2 % (11.5-14.5); White Blood Count 13.3 K/mm3 (4.5-10.0)
[2024-01-29 20:24] LABS: Alanine Aminotransferase 20 U/L (6-50); Albumin Level 4.1 g/dL (3.5-5.1); Alkaline Phosphatase 103 U/L (38-126); Anion Gap 14 mmol/L (4-12); Aspartate Amino Transferase 27 U/L (17-59); Bilirubin,Total 0.5 mg/dL (0.2-1.3); Blood Urea Nitrogen 20 mg/dL (9-20); Calcium 8.9 mg/dL (8.4-10.2); Carbon Dioxide 20 mmol/L (22-30); Chloride 101 mmol/L (98-107); Estimated CRCL calculation 60 ml/min; Estimated Glomerular Filt Rate 60; Glucose 114 mg/dL (65-110); Lipase 202 U/L (23-300); Potassium 3.8 mmol/L (3.4-5.0); Sodium 135 mmol/L (137-145)
--- NOTE | 2024-01-29 21:13 | ED.ABDPAIN ---
HPI - Abdominal Pain General Chief Complaint: Abdominal Pain Stated Complaint: abd pain Time Seen by Provider: 01/29/24 20:18 History of Present Illness HPI narrative: 68-year-old male with history of CAD, s/p 2 stent placements in December of 2021 and February of 2022, HLD, cholecystectomy, appendectomy presents to the emergency department for diffuse abdominal pain intermittently for 2 weeks. Patient states at times the pain is in his lower abdomen, sometimes and is in the middle of his abdomen and sometimes it is in his epigastrium. States today he had tacos and his pain significantly worsened which prompted him come to the ED. It is currently located in his epigastrium. States he has follow-up with his PCP regarding his pain was prescribed Protonix which seemed to help for a couple days, however the pain is now back. He did vomit upon arrival to the ED. Denies diarrhea, chest pain, dysuria or hematuria. Last bowel movement was today normal. He does state that he feels short of breath when the pain is intense. Related Data Home Medications Medication Instructions Recorded Confirmed paroxetine HCl 20 mg tablet 20 mg PO HS 04/27/20 12/17/23 amlodipine 5 mg tablet 5 mg PO DAILY 11/09/23 12/17/23 aspirin 81 mg chewable tablet 81 mg PO DAILY 11/09/23 12/17/23 atorvastatin 40 mg tablet 40 mg PO DAILY 11/09/23 12/17/23 clopidogrel 75 mg tablet 75 mg PO DAILY 11/09/23 12/17/23 ezetimibe 10 mg tablet 10 mg PO DAILY 11/09/23 12/17/23 Allergies Allergy/AdvReac Type Severity Reaction Status Date / Time No Known Allergies Allergy Unknown Verified 01/29/24 19:57 Review of Systems Review of Systems: All systems reviewed & are unremarkable except as noted in HPI and below PMFSH Past Medical History Medical History Adenomatous colon polyp CAD (coronary artery disease) Obesity Orthostatic hypotension (~12/14/23) PMR (polymyalgia rheumatica) Surgical History Surgical History History of appendectomy ~1979 History of cholecystectomy ~[id number] History of heart artery stent Family History Family History Sibling Cardiomyopathy Diabetes mellitus Father Emphysema lung Mother No problems noted. Social History Social History Social History: Patient lives at home with his , Prabha, whom he designates as his surrogate MDM. He wishes to be Full Code. His PCP is Dr. 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 Gender identity (if verbalized by the patient): Male Spiritual care concerns: No Exam Narrative: GENERAL: Well-appearing, well-nourished, and in no acute distress. HEAD: Normocephalic, atraumatic. ENT: Nares clear, no rhinorrhea or epistaxis. Mucous membranes moist. NECK: Supple. CHEST: Clear to auscultation. No respiratory distress. HEART: Regular rate and rhythm. No murmur heard. Normal peripheral pulses. ABDOMEN: Quiet bowel sounds. Abdomen soft with tenderness in the epigastrium. No rebound, guarding or rigidity. No CVA tenderness. EXTREMITIES: Normal range of motion. No edema. SKIN: Warm, dry, no rash. NEURO:
[2024-01-29 21:35] LABS: Prothrombin Time 13.8 Seconds (11.1-14.7)
[2024-01-29] MEDS: SODIUM CHLORIDE 0.9% IV 1,000 ML 999 ML IV CONT (21:37)
[2024-01-29] MEDS: ONDANSETRON INJ 4 MG/2 ML VIAL IV PUSH (21:37)
[2024-01-29] MEDS: PANTOPRAZOLE SODIUM IV 40 MG VIAL IV PUSH (21:37)
[2024-01-29 21:41] LABS: Troponin I < 0.012 ng/mL (0.000-0.034)
[2024-01-29 21:58] LABS: Influenza A QL RT-PCR Negative (Negative); Influenza B QL RT-PCR Negative (Negative); RSV RNA, RT-PCR Negative (Negative); SARS-CoV-2 RNA PCR Negative (Negative)
[2024-01-29 22:02] VITALS: BP 109/69; PULSE 84; RESP 18; O2SAT 100
[2024-01-29 22:43] VITALS: BP 120/76; PULSE 87; RESP 18; O2SAT 94
[2024-01-29 22:47] LABS: Add Urine Microscopic? NO; Appearance Urine Clear (Clear); Bilirubin Urine Negative (Negative); Blood Urine Negative (Negative); Color Urine Yellow (Yellow); Glucose Urine UA Negative (Negative); Ketones Urine Negative (Negative); Leukocyte Esterase Ur Negative LEU/UL (Negative); Nitrate Urine Negative (Negative); Protein Urine Negative (Negative); Specific Grav Ur 1.045 (1.001-1.035)
[2024-01-30 00:12] LABS: Lactic Acid Reflex < 0.5 mmol/L (0.7-2.0)
--- NOTE | 2024-01-30 00:16 | PM.IMHP ---
H&P: HPI History of Present Illness Date/Time: 01/30/24 00:16 Chief Complaint: abdominal pain Narrative: This is a 68-year-old male with past medical history significant for coronary artery disease, polymyalgia rheumatica. Patient presents to the emergency room due to abdominal pain for the last 10 days has gotten worse rates it at 10/10 in intensity it is localized to the infraumbilical area denies any bleeding denies nausea vomiting denies any changes in his stool character denies fevers rigors or chills has had good per orally intake. Preliminary workup was significant for CT abdomen and pelvis with likely intraperitoneal abscess. Patient has been admitted for further evaluation management and treat XR chest 2V Ordering provider: Jenifer Cornelius PA-C History: 68 years Male with . fever, nausea and vomiting . Comparison: None. FINDINGS: MEDIASTINUM: The cardiac silhouette is slightly enlarged. Congestive cyndi. LUNGS: No infiltrates, effusions or pneumothorax. Stone in the right suprahilar area which may be a nodule. Follow-up in 3 months is advised. OTHER: No free air under the diaphragm. Degenerative spine. IMPRESSION: No acute cardiopulmonary pathology. Possible nodule in the right suprahilar area. Three-month follow-up advised. CT abdomen pelvis w con Ordering provider: Jenifer Cornelius PA-C History: 68 years Male with . abdominal pain, fever . Comparison: None. Technique: CT abdomen and pelvis with IV and without oral contrast. Automated exposure control and iterative reconstruction technique were employed. The dose-length product was 1260.27 mGy-cm. 100 mL Omnipaque 350 was given IV. Findings: VISUALIZED LOWER CHEST: Dependent atelectatic changes. UPPER ABDOMINAL ORGANS: Liver: Normal. Gallbladder: Status post cholecystectomy. Spleen: Normal. Stomach/duodenum: Small duodenal diverticulum is seen. Pancreas: Normal. Adrenals: Normal. Kidneys: Normal. PELVIC ORGANS: The bladder is normal. BOWEL AND MESENTERY: Colon: Mild sigmoid diverticulosis without diverticulitis. The appendix is not demonstrated. Small Bowel: No obstruction. Fluid collection seen in the left side of the abdomen which measures 3.9 x 4.1 cm with thickened wall which raises the possibility also of dilated small bowel with inflammation in the wall is not excluded. Inflammation in a diverticulum also is is not excluded. Surrounding minimal air is seen Peritoneum/mesentery: No free air. Trace of free fluid is seen in the pelvis. No mesenteric lymphadenopathy. RETROPERITONEUM: Mild atheromatous disease of the abdominal aorta. No retroperitoneal lymphadenopathy. MUSCULOSKELETAL: Superficial soft tissues: The superficial soft tissues are normal. Bones: Age appropriate degenerative changes of the spine. IMPRESSION: 1. Collection is seen in the left side of the abdomen which may be inflammatory in small bowel with thickened wall versus diverticulum with inflammatory changes versus an abscess with fistula with the small bowel. The last choice is the most probable. Small surrounding air is seen which may indicate focal perforation. 2. Trace of free fluid in the pelvis. Review of Systems Review of Systems: abdominal pain the infraumbilical area no nausea no vomiting no changes in his stool card no fevers no rigors no chills PMFSH Past Medical History Medical History (Updated 01/30/24 @ 01:13 by Darnell Morgan MD) Adenomatous colon polyp CAD (coronary artery disease) Obesity Orthostatic hypotension (~12/14/23) PMR (polymyalgia rheumatica) Surgical History Surgical History History of appendectomy ~1979 History of cholecystectomy ~[id number] History of heart artery stent Family History Family History Sibling Cardiomyopathy Diabetes mellitus Father Emphysema lung
[2024-01-30] MEDS: SODIUM CHLORIDE 0.9% IV 1,000 ML 999 ML IV CONT (00:20)
[2024-01-30] MEDS: MORPHINE SULFATE (*CRX) 4 MG/ML INJ IV PUSH ×7 (00:20→20:05)
[2024-01-30] MEDS: PIPERACILLN/TAZ 3.375GM/NS50ML 3.375 GM/50 ML BAG IVPB ×4 (01:26→18:29)
[2024-01-30] MEDS: SODIUM CHLORIDE 0.9% IV 1,000 ML 125 ML IV CONT (01:42)
[2024-01-30 02:24] VITALS: BMI 30.1
--- NOTE | 2024-01-30 02:46 | ADMGEN ---
This patient, Brice Manrique, was admitted to [facility] Surg Room 321-02. Patient/family oriented to hospital policies and general routines including ID bracelet, bed and alarms, visiting hours, pain management, procedures, bathroom and other care routines, personal items, smoking policy, room service/diet, and visiting hours. Information on how to activate the Rapid Response Team has been discussed. Patient/Family are encouraged to report perceived risks to care and to ask questions if they do not understand what they are told or what they should do.
--- NOTE | 2024-01-30 02:55 | ADMGEN ---
This patient, Brice Manrique, was admitted to [facility] Surg Room 321-02. Patient/family oriented to hospital policies and general routines including ID bracelet, bed and alarms, visiting hours, pain management, procedures, bathroom and other care routines, personal items, smoking policy, room service/diet, and visiting hours. Information on how to activate the Rapid Response Team has been discussed. Patient/Family are encouraged to report perceived risks to care and to ask questions if they do not understand what they are told or what they should do.
[2024-01-30 03:01] VITALS: BP 100/70; PULSE 65; RESP 22; TEMP 37.1; O2SAT 94
[2024-01-30 05:15] VITALS: BP 99/67; PULSE 66; RESP 20; TEMP 37.2; O2SAT 91
--- NOTE | 2024-01-30 07:50 | PM.IMPN ---
Progress Note: A&P Assessment and Plan (1) Small bowel diverticular disease: Code(s): K57.10 - Diverticulosis of small intestine without perforation or abscess without bleeding Status: Acute Assessment and Plan: patient presents with varying abdominal pain and he has been experiencing intermittently over the course of the last few weeks. CT abdomen pelvis shows collection in the left side of the abdomen which may be inflammatory and small bowel with thickened wall versus diverticulum with inflammatory changes versus an abscess with fistula. admit to regular medical floor started on Zosyn NPO D5NS at 100 ml per hour Morphine for pain, Zofran from nausea Tylenol as needed for fever > 101.4 general surgery is consulted and rec's appreciated (2) Sepsis: Code(s): A41.9 - Sepsis, unspecified organism Status: Acute Assessment and Plan: Leukocytosis of 13,000 on admission, tachypnea, hypotension, and febrile 101.3. presumed infection from bowel perforation lactic acid 0.5 patient received 2 L of normal saline in the emergency room and was started on Zosyn blood cultures pending (3) CAD (coronary artery disease): Code(s): I25.10 - Atherosclerotic heart disease of [place] coronary artery without angina pectoris Status: Acute Assessment and Plan: History of CAD with stent placement. Patient is on Plavix and ASA. continue baby asa, holding Plavix for surgery vs drain? Subjective Date/time seen: 01/30/24 07:50 Interval history: No acute events overnight. He remains NPO. He has minimal abdominal pain and is passing flatness. He denies nausea vomiting at this time. Review of Systems Review of Systems: All systems reviewed & are unremarkable except as noted in HPI and below Exam Narrative: General: appears comfortable, in no acute distress Respiratory: breathing is unlabored with even chest rise/fall, lungs are clear without wheezing, rhonchi, and crackles Cardiovascular: Rate and rhythm regular, normal s1s2, no murmur Abdomen: Soft, round, mildly tender, active bowel sounds Extremities: No cyanosis, edema, clubbing. Pulses 2/2 Neuro: A&O x 4 Skin: Warm, dry, intact Objective Data Vital Signs Vital Signs: Vital Signs - 24 hr 01/29/24 19:57 01/29/24 20:06 01/29/24 22:02 Temperature 101.3 F H 98.0 F Pulse Rate 85 82 84 Respiratory Rate 26 H 14 18 Blood Pressure 120/84 120/81 109/69 Pulse Oximetry 94 94 100 Oxygen Delivery Room Air Room Air 01/29/24 22:43 01/30/24 03:01 01/30/24 02:50 Temperature 98.8 F Pulse Rate 87 65 Respiratory Rate 18 22 H Blood Pressure 120/76 100/70 Pulse Oximetry 94 94 Oxygen Delivery Room Air 01/30/24 05:15 Temperature 98.9 F Pulse Rate 66 Respiratory Rate 20 Blood Pressure 99/67 L Pulse Oximetry 91 Oxygen Delivery Intake/Output Intake/Output: Intake & Output 01/27/24 01/28/24 01/29/24 01/30/24 23:59 23:59 23:59 23:59 Intake Total 1000 1100 Balance 1000 1100 Meds/Results Medications: Active Medications Generic Name Dose Route Start Last Admin Trade Name Freq PRN Reason Stop Dose Admin Piperacillin/Tazobactam/Dextrose 3.375 gm in 50 mls @ 100 mls/hr 01/30/24 06:00 01/30/24 05:45 Zosyn 3.375 Gm/Ns 50 Ml IVPB Infused Q6H DONATO Infusion Sodium Chloride 1,000 mls @ 125 mls/hr 01/29/24 23:55 01/30/24 01:42 Normal Saline Iv IV CONT 125 mls/hr .Q8H DONATO Administration Morphine Sulfate 4 mg 01/29/24 23:54 01/30/24 06:49 Morphine Sulfate (*Crx) 4 Mg/Ml Inj IV PUSH 4 mg Q2H PRN Administration Pain Rated 7-10 Ondansetron HCl 4 mg 01/30/24 05:19 Ondansetron Inj 4 Mg/2 Ml Vial IV PUSH Q6H PRN Nausea And Vomiting Radiology Results: ITS Impressions Chest X-Ray 01/29/24 22:05 IMPRESSION: No acute cardiopulmonary pathology. Possible nodule in the right suprahilar area. Three-month follow-up advised.
[2024-01-30 08:00] VITALS: PULSE 66; RESP 20; O2SAT 91
[2024-01-30 08:20] LABS: Basophils Absolute Auto 0.1 K/mm3 (0.0-0.1); Basophils Percent Auto 0.5 % (0.2-1.2); Eosinophils Absolute Auto 0.1 K/mm3 (0-0.3); Eosinophils Percent Auto 1.1 % (0-4.4); Hematocrit 39.3 % (42.0-52.0); Hemoglobin 13.2 g/dL (14.0-18.0); Immature Granulocyte Absolute 0.04 K/mm3 (0.00-0.031); Immature Granulocyte Percent A 0.4 % (0-0.5); Lymphocytes Absolute Auto 1.92 K/mm3 (0.9-3.2); Lymphocytes Percent Auto 17.4 % (18.3-44.2); Mean Corpuscular HGB Conc 33.6 g/dl (32-36); Mean Corpuscular Hemoglobin 32.5 pg (26-34); Mean Corpuscular Volume 96.8 fl (80-100); Mean Platelet Volume 9.4 fl (7.4-10.4); Monocytes Absolute Auto 1.3 K/mm3 (0.1-0.6); Monocytes Percent Auto 12.1 % (2.6-8.5); Neutrophils Absolute Auto 7.6 K/mm3 (1.3-6.7); Neutrophils Percent Auto 68.5 % (45.5-73.1); Platelet Count Result 258 k/mm3 (150-375); Red Blood Count 4.06 M/mm3 (4.6-6.20); Red Cell Distribution Width 12.4 % (11.5-14.5); White Blood Count 11.1 K/mm3 (4.5-10.0)
[2024-01-30 08:44] LABS: Alanine Aminotransferase 18 U/L (6-50); Albumin Level 3.5 g/dL (3.5-5.1); Alkaline Phosphatase 69 U/L (38-126); Anion Gap 7 mmol/L (4-12); Aspartate Amino Transferase 23 U/L (17-59); Bilirubin,Total 1.1 mg/dL (0.2-1.3); Blood Urea Nitrogen 17 mg/dL (9-20); Carbon Dioxide 25 mmol/L (22-30); Chloride 103 mmol/L (98-107); Estimated CRCL calculation 72 ml/min; Estimated Glomerular Filt Rate > 60; Glucose 104 mg/dL (65-110); Sodium 135 mmol/L (137-145)
[2024-01-30] MEDS: DEXTROSE 5%/0.9% SOD CHL 1,000 ML 100 ML IV CONT ×2 (09:41→20:58)
--- NOTE | 2024-01-30 10:51 | WPDCN ---
Assessment and Plan Assessment and plan (1) Small bowel diverticular disease: Code(s): K57.10 - Diverticulosis of small intestine without perforation or abscess without bleeding Status: Acute Assessment and Plan: Patient appears to have a contained perforation of a large small bowel diverticula in the mid jejunum. No free air is seen and a small foci of extraluminal air seen in the area the perforation. It is well contained. No large abscess seen although there was a fairly large small-bowel diverticulum causing the air-fluid level. You had the CT scan with Dr. Joaquin who is a radiologist in the hospital today and he agrees that this appears to be a large small-bowel diverticulum with a micro perforation and surrounding inflammatory change without evidence of fistula between loops of small bowel. Patient also has numerous other small-bowel diverticula without inflammation in the duodenum and portions of the jejunum. He also has colonic diverticula without evidence of acute diverticulitis at this time. I recommend treatment with non operative measures with bowel rest right now and IV antibiotics. He should improve with nonoperative measures and come hopefully be discharged eventually on oral antibiotic. He is scheduled to get his colonoscopy EGD in a few weeks and as long as he heals well then I think he can go ahead and proceed with having that done. No evidence of acute surgical abdomen at this time. There is no abscess that needs to be drained. HPI Data of Consult Date/Time: 01/30/24 10:51 Requesting Physician: Olimpia Abrams APRN Primary Care Provider: Ken Ribeiro, Consult Narrative Reason for consult: Abdominal pain Narrative: Brice Manrique is a 68 year old male presented to the emergency room with acute worsening of left-sided abdominal pain yesterday. He stated he has been having some pain in his abdomen for the last 2 weeks. He initially solid Dr. Maciel for GI evaluation and a upper and lower endoscopy is planned for February. He has had a prior colonoscopy within the last 5 years which had removal of benign polyps. Some nausea and emesis yesterday but did have a normal bowel movement yesterday. Workup in emergency room showed a elevated white blood cell count of 13,000. He was hemodynamically stable and afebrile. CT scan abdomen pelvis showed an inflammatory process going on in the left side of the abdomen. It seemed to involve a loop of small bowel but there is no evidence of bowel obstruction. Today the patient has less pain but is still rates it 3 or 4 out of a scale a 10. No nausea or vomiting. His only prior abdominal surgery includes a laparoscopic cholecystectomy and open appendectomy many years ago. He does have a history coronary disease and had coronary stents placed over 1 year ago. He has no active angina. He is on dual antiplatelet therapy with Plavix and a baby aspirin. Review of Systems Review of Systems: The remainder of the review of systems to include constitutional, HEENT, cardiovascular, respiratory, GI, , integumentary, musculoskeletal, endocrine, immunologic, hematologic, psychiatric, and neurologic are all negative except for which is mentioned above in the HPI. [facility] Past Medical History Medical History Adenomatous colon polyp CAD (coronary artery disease) Obesity Orthostatic hypotension (~12/14/23) PMR (polymyalgia rheumatica) Surgical History Surgical History History of appendectomy ~1979 History of cholecystectomy ~[id number] History of heart artery stent Family History Family History Sibling Cardiomyopathy Diabetes mellitus Father Emphysema lung Mother No problems noted. Social History Social History S
[2024-01-30 14:20] VITALS: BP 104/71; PULSE 54; RESP 16; TEMP 37.2; O2SAT 97
[2024-01-30 20:24] VITALS: BP 115/74; PULSE 53; RESP 18; TEMP 36.3; O2SAT 99
[2024-01-30 21:58] VITALS: O2SAT 99
[2024-01-31] MEDS: PIPERACILLN/TAZ 3.375GM/NS50ML 3.375 GM/50 ML BAG IVPB ×4 (00:56→18:08)
[2024-01-31] MEDS: MORPHINE SULFATE (*CRX) 4 MG/ML INJ IV PUSH ×3 (00:56→20:06)
[2024-01-31 05:41] VITALS: BP 108/72; PULSE 54; RESP 20; TEMP 36.5; O2SAT 97
[2024-01-31 06:27] LABS: Basophils Absolute Auto 0.1 K/mm3 (0.0-0.1); Eosinophils Absolute Auto 0.4 K/mm3 (0-0.3); Eosinophils Percent Auto 4.6 % (0-4.4); Hematocrit 38.6 % (42.0-52.0); Hemoglobin 12.9 g/dL (14.0-18.0); Immature Granulocyte Absolute 0.03 K/mm3 (0.00-0.031); Immature Granulocyte Percent A 0.4 % (0-0.5); Lymphocytes Absolute Auto 1.86 K/mm3 (0.9-3.2); Mean Corpuscular HGB Conc 33.4 g/dl (32-36); Mean Corpuscular Hemoglobin 33.2 pg (26-34); Mean Corpuscular Volume 99.2 fl (80-100); Mean Platelet Volume 9.6 fl (7.4-10.4); Monocytes Absolute Auto 0.9 K/mm3 (0.1-0.6); Monocytes Percent Auto 12.1 % (2.6-8.5); Neutrophils Absolute Auto 4.5 K/mm3 (1.3-6.7); Neutrophils Percent Auto 57.9 % (45.5-73.1); Platelet Count Result 225 k/mm3 (150-375); Red Blood Count 3.89 M/mm3 (4.6-6.20); Red Cell Distribution Width 12.5 % (11.5-14.5); White Blood Count 7.8 K/mm3 (4.5-10.0)
[2024-01-31 06:40] LABS: Anion Gap 7 mmol/L (4-12); Blood Urea Nitrogen 11 mg/dL (9-20); Carbon Dioxide 24 mmol/L (22-30); Chloride 103 mmol/L (98-107); Estimated CRCL calculation 79 ml/min; Estimated Glomerular Filt Rate > 60; Glucose 101 mg/dL (65-110); Potassium 3.7 mmol/L (3.4-5.0); Sodium 134 mmol/L (137-145)
--- NOTE | 2024-01-31 07:34 | PM.IMPN ---
Progress Note: A&P Assessment and Plan (1) Small bowel diverticular disease: Code(s): K57.10 - Diverticulosis of small intestine without perforation or abscess without bleeding Status: Acute Assessment and Plan: patient presents with varying abdominal pain and he has been experiencing intermittently over the course of the last few weeks. CT abdomen pelvis shows collection in the left side of the abdomen which may be inflammatory and small bowel with thickened wall versus diverticulum with inflammatory changes versus an abscess with fistula. admit to regular medical floor started on Zosyn Full liquids at lunch and regular diet at dinner D5NS at 100 ml per hour---stopped. Morphine for pain, Zofran from nausea Tylenol as needed for fever > 101.4 general surgery is consulted and rec's appreciated anticipating d/c tomorrow with oral antibiotics (2) Sepsis: Code(s): A41.9 - Sepsis, unspecified organism Status: Acute Assessment and Plan: Leukocytosis of 13,000 on admission, tachypnea, hypotension, and febrile 101.3. presumed infection from bowel perforation lactic acid 0.5 patient received 2 L of normal saline in the emergency room and was started on Zosyn blood cultures pending (3) CAD (coronary artery disease): Code(s): I25.10 - Atherosclerotic heart disease of [place] coronary artery without angina pectoris Status: Acute Assessment and Plan: History of CAD with stent placement. Patient is on Plavix and ASA. continue baby asa Subjective Date/time seen: 01/31/24 07:34 Interval history: No acute events overnight. He reports less pain today. He is not having any nausea or vomiting. He is interested in having something to eat today. Review of Systems Review of Systems: All systems reviewed & are unremarkable except as noted in HPI and below Exam Narrative: General: appears comfortable, in no acute distress Respiratory: breathing is unlabored with even chest rise/fall, lungs are clear without wheezing, rhonchi, and crackles Cardiovascular: Rate and rhythm regular, normal s1s2, no murmur Abdomen: Soft, round, mildly tender, active bowel sounds Extremities: No cyanosis, edema, clubbing. Pulses 2/2 Neuro: A&O x 4 Skin: Warm, dry, intact Objective Data Vital Signs Vital Signs: Vital Signs - 24 hr 01/30/24 08:00 01/30/24 14:20 01/30/24 20:24 Temperature 99.0 F 97.4 F L Pulse Rate 66 54 L 53 L Respiratory Rate 20 16 18 Blood Pressure 104/71 115/74 Pulse Oximetry 91 97 99 Oxygen Delivery Room Air 01/30/24 20:00 01/31/24 05:41 01/30/24 21:58 Temperature 97.7 F Pulse Rate 54 L Respiratory Rate 20 Blood Pressure 108/72 Pulse Oximetry 97 99 Oxygen Delivery Room Air Room Air Intake/Output Intake/Output: Intake & Output 01/28/24 01/29/24 01/30/24 01/31/24 23:59 23:59 23:59 23:59 Intake Total 1000 2750 50 Balance 1000 2750 50 Meds/Results Medications: Active Medications Generic Name Dose Route Start Last Admin Trade Name Freq PRN Reason Stop Dose Admin Acetaminophen 120 mg 01/30/24 07:59 Acetaminophen 120 Mg Suppository RECTAL Q4H PRN Mild Pain (1-3) or Fever Acetaminophen 325 mg 01/30/24 07:59 Acetaminophen 325 Mg Tablet PO Q4H PRN Mild Pain (1-3) or Fever Piperacillin/Tazobactam/Dextrose 3.375 gm in 50 mls @ 100 mls/hr 01/30/24 06:00 01/31/24 05:06 Zosyn 3.375 Gm/Ns 50 Ml IVPB 100 mls/hr Q6H DONATO Administration Dextrose/Sodium Chloride 1,000 mls @ 100 mls/hr 01/30/24 08:00 01/30/24 20:58 Dextrose 5% Sodium Chloride 0.9% IV CONT 100 mls/hr .Q10H DONATO Administration Morphine Sulfate 4 mg 01/29/24 23:54 01/31/24 05:07 Morphine Sulfate (*Crx) 4 Mg/Ml Inj IV PUSH 4 mg Q2H PRN Administration Pain Rated 7-10 Ondansetron HCl 4 mg 01/30/24 05:19 Ondansetron Inj 4 Mg/2 Ml Vial IV PUSH Q6H PRN Nausea And Vomitin
[2024-01-31] MEDS: DEXTROSE 5%/0.9% SOD CHL 1,000 ML 100 ML IV CONT (07:43)
--- NOTE | 2024-01-31 09:59 | WPDPN ---
Progress Note: A&P Assessment and Plan (1) Small bowel diverticular disease: Code(s): K57.10 - Diverticulosis of small intestine without perforation or abscess without bleeding Status: Acute Assessment and Plan: Patient has a small contained leak or perforation of a small bowel diverticulum. This has responded to non operative therapy and IV antibiotics. White blood count is normalized his pain is minimal to having no pain. We will go ahead advance him to full liquids for lunch today and then if tolerating regular diet for dinner. If he is still doing well tomorrow then he can be discharged home to finish a course of oral antibiotics at home for the next 7 to 10 days. Continue IV antibiotics was here in the hospital and transition oral antibiotic at discharge. Go ahead Hep-Lock his IV fluids today. Subjective Date/time seen: 01/31/24 09:59 Interval history: Patient is doing much better now. Minimal abdominal pain. Is passing flatus but has not had a bowel movement. No nausea vomiting. Afebrile and vital signs are normal. White blood count is normal today. Exam GI: Other: Abdomen is soft and nondistended. Minimal tenderness to deep palpation left side of the abdomen. Exam is essentially benign. Objective Data Vital Signs Vital Signs: Vital Signs - 24 hr 01/30/24 14:20 01/30/24 20:24 01/30/24 20:00 Temperature 37.2 C 36.3 C L Pulse Rate 54 L 53 L Respiratory Rate 16 18 Blood Pressure 104/71 115/74 Pulse Oximetry 97 99 Oxygen Delivery Room Air 01/31/24 05:41 01/30/24 21:58 Temperature 36.5 C Pulse Rate 54 L Respiratory Rate 20 Blood Pressure 108/72 Pulse Oximetry 97 99 Oxygen Delivery Room Air Intake/Output Intake/Output: Intake & Output 01/28/24 01/29/24 01/30/24 01/31/24 23:59 23:59 23:59 23:59 Intake Total 1000 2750 1100 Balance 1000 2750 1100 Meds/Results Medications: Active Medications Generic Name Dose Route Start Last Admin Trade Name Freq PRN Reason Stop Dose Admin Acetaminophen 120 mg 01/30/24 07:59 Acetaminophen 120 Mg Suppository RECTAL Q4H PRN Mild Pain (1-3) or Fever Acetaminophen 325 mg 01/30/24 07:59 Acetaminophen 325 Mg Tablet PO Q4H PRN Mild Pain (1-3) or Fever Piperacillin/Tazobactam/Dextrose 3.375 gm in 50 mls @ 100 mls/hr 01/30/24 06:00 01/31/24 05:36 Zosyn 3.375 Gm/Ns 50 Ml IVPB Infused Q6H DONATO Infusion Dextrose/Sodium Chloride 1,000 mls @ 100 mls/hr 01/30/24 08:00 01/31/24 07:43 Dextrose 5% Sodium Chloride 0.9% IV CONT 100 mls/hr .Q10H DONATO Administration Morphine Sulfate 4 mg 01/29/24 23:54 01/31/24 05:07 Morphine Sulfate (*Crx) 4 Mg/Ml Inj IV PUSH 4 mg Q2H PRN Administration Pain Rated 7-10 Ondansetron HCl 4 mg 01/30/24 05:19 Ondansetron Inj 4 Mg/2 Ml Vial IV PUSH Q6H PRN Nausea And Vomiting Radiology Results: ITS Impressions Chest X-Ray 01/29/24 22:05 IMPRESSION: No acute cardiopulmonary pathology. Possible nodule in the right suprahilar area. Three-month follow-up advised. Abdomen/Pelvis CT 01/29/24 23:05 IMPRESSION: 1. Collection is seen in the left side of the abdomen which may be inflammatory in small bowel with thickened wall versus diverticulum with inflammatory changes versus an abscess with fistula with the small bowel. The last choice is the most probable. Small surrounding air is seen which may indicate focal perforation. 2. Trace of free fluid in the pelvis. Labs Labs: Laboratory Results - last 24 hr 01/31/24 05:51 WBC 7.8 RBC 3.89 L Hgb 12.9 L Hct 38.6 L MCV 99.2 MCH 33.2 MCHC 33.4 RDW 12.5 Plt Count 225 MPV 9.6 Immature Gran % (Auto) 0.4 Neut % (Auto) 57.9 Lymph % (Auto) 24.0 [place] % (Auto) 12.1 H Eos % (Auto) 4.6 H Baso % (Auto) 1.0 Lymph # (Auto) 1.86 [place] # (Auto) 0.9 H Eos # (Auto) 0.4 H Baso # (Auto) 0.1 Abs Immat Gran (auto) 0.03 Absolu
[2024-01-31] MEDS: PANTOPRAZOLE 40 MG TABLET PO (11:18)
[2024-01-31 14:00] VITALS: BP 104/65; PULSE 61; RESP 20; TEMP 36.7; O2SAT 98
[2024-01-31] MEDS: PARoxetine 20 MG TABLET PO (20:07)
[2024-01-31 20:39] VITALS: BP 107/65; PULSE 64; RESP 20; TEMP 37.2; O2SAT 100
[2024-01-31 21:32] VITALS: O2SAT 99
[2024-02-01] MEDS: PIPERACILLN/TAZ 3.375GM/NS50ML 3.375 GM/50 ML BAG IVPB ×2 (00:12→05:40)
[2024-02-01 05:33] VITALS: BP 123/76; PULSE 56; RESP 22; TEMP 36.9; O2SAT 97
[2024-02-01 06:18] LABS: Basophils Absolute Auto 0.1 K/mm3 (0.0-0.1); Basophils Percent Auto 0.9 % (0.2-1.2); Eosinophils Absolute Auto 0.4 K/mm3 (0-0.3); Eosinophils Percent Auto 4.5 % (0-4.4); Hematocrit 37.8 % (42.0-52.0); Hemoglobin 13.1 g/dL (14.0-18.0); Immature Granulocyte Absolute 0.03 K/mm3 (0.00-0.031); Immature Granulocyte Percent A 0.3 % (0-0.5); Lymphocytes Absolute Auto 1.66 K/mm3 (0.9-3.2); Lymphocytes Percent Auto 18.7 % (18.3-44.2); Mean Corpuscular HGB Conc 34.7 g/dl (32-36); Mean Corpuscular Hemoglobin 33.3 pg (26-34); Mean Corpuscular Volume 96.2 fl (80-100); Mean Platelet Volume 9.3 fl (7.4-10.4); Monocytes Absolute Auto 0.7 K/mm3 (0.1-0.6); Monocytes Percent Auto 8.2 % (2.6-8.5); Neutrophils Percent Auto 67.4 % (45.5-73.1); Platelet Count Result 237 k/mm3 (150-375); Red Blood Count 3.93 M/mm3 (4.6-6.20); Red Cell Distribution Width 12.3 % (11.5-14.5); White Blood Count 8.9 K/mm3 (4.5-10.0)
[2024-02-01 06:29] LABS: Alanine Aminotransferase 18 U/L (6-50); Albumin Level 3.3 g/dL (3.5-5.1); Alkaline Phosphatase 69 U/L (38-126); Anion Gap 7 mmol/L (4-12); Aspartate Amino Transferase 28 U/L (17-59); Bilirubin,Total 0.7 mg/dL (0.2-1.3); Blood Urea Nitrogen 9 mg/dL (9-20); Calcium 8.5 mg/dL (8.4-10.2); Carbon Dioxide 26 mmol/L (22-30); Chloride 103 mmol/L (98-107); Estimated CRCL calculation 65 ml/min; Estimated Glomerular Filt Rate > 60; Glucose 115 mg/dL (65-110); Magnesium 2.1 mg/dL (1.6-2.3); Potassium 3.5 mmol/L (3.4-5.0); Sodium 136 mmol/L (137-145)
[2024-02-01] MEDS: EZETIMIBE 10 MG TABLET PO (08:39)
[2024-02-01] MEDS: ASPIRIN 81 MG CHEWABLE TABLET PO (08:39)
[2024-02-01] MEDS: ATORVASTATIN 40 MG TABLET PO (08:39)
[2024-02-01] MEDS: PANTOPRAZOLE 40 MG TABLET PO (08:39)
[2024-02-01 08:42] VITALS: BP 113/75; PULSE 75; RESP 16; O2SAT 97
[2024-02-01] MEDS: amLODIPine BESYLATE 5 MG TABLET PO (08:42)
--- NOTE | 2024-02-01 08:52 | P.DS_ITS ---
DS: Admitting Diagnosis Discharge Date 02/01/24 Admitting Diagnosis Intra-Abdominal Abscess Fistula of Small Intestine PMR CAD DS: Discharge Diagnosis Discharge Diagnosis (1) Small bowel diverticular disease: Code(s): K57.10 - Diverticulosis of small intestine without perforation or abscess without bleeding Status: Acute Assessment and Plan: patient presents with varying abdominal pain and he has been experiencing intermittently over the course of the last few weeks. CT abdomen pelvis shows collection in the left side of the abdomen which may be inflammatory and small bowel with thickened wall versus diverticulum with inflammatory changes versus an abscess with fistula. * admit to regular medical floor * started on Zosyn * Full liquids at lunch and regular diet at dinner * D5NS at 100 ml per hour---stopped. * Morphine for pain, Zofran from nausea * Tylenol as needed for fever > 101.4 * general surgery is consulted and rec's appreciated * anticipating d/c tomorrow with oral antibiotics 02/01/24: * Date of discharge. Pt is now asymptomatic. * Will change IV Zosyn to Augmentin for a total of 10 days. * Follow up with [facility] as well as PCP. * Tylenol as needed on discharge * Return to ER for worsening of pain or inability to tolerate po intake. (2) Sepsis: Code(s): A41.9 - Sepsis, unspecified organism Status: Resolved Assessment and Plan: * Leukocytosis of 13,000 on admission, tachypnea, hypotension, and febrile 101.3. * presumed infection from bowel perforation * lactic acid 0.5 * patient received 2 L of normal saline in the emergency room and was started on Zosyn * blood cultures pending 02/01/24: * Date of discharge * Sepsis resolved * Preliminary cultures without any growth. * Continue po abx upon discharge. * Follow up with PCP and [facility] at discharge. (3) CAD (coronary artery disease): Code(s): I25.10 - Atherosclerotic heart disease of [place] coronary artery without angina pectoris Status: Chronic Assessment and Plan: History of CAD with stent placement. Patient is on Plavix and ASA. * continue baby asa 02/01/24: * Continue home medication regimen. DS: Summary Hospital Course Reason for hospitalization: Intra-abdominal abscess Sepsis Hospital Course: This very pleasant 68 year old male pt with PMH of CAD and PMR presented and was subsequently admitted to the hospital on 01/30/24 endorsing a 10 day history of abdominal pain. In ER CT abd and pelvis showed a concern for an intraperitoneal abscess or focal perforation. He met Sepsis criteria upon admission with Leukocytosis, fever of 101.3, and known source. He was started on IV abx and [facility], Dr. Stauffer, was consulted for co-management. During his hospitalization, he has been receiving IV abx, and slowly has had resolution of his pain and has been able to tolerate oral intake without N/V. He is passing flatus without difficulty. His sepsis has resolved. Per their note, Emmanueljabari is agreeable to discharge today on oral abx for 7-10 days if pt was still doing well today. This morning he reports no pain for this provider even with deep palpation of the abdomen. He is independently ambulatory and has no N/V. He has been eating >75% of his meals and without difficulty or complaint. He would like to go home at this time. He is agreeable to discharge on oral abx therapy with Augmentin, and follow up as outpt. Status at Discharge Cognitive/behavioral status at discharge: At baseline Functional status at discharge: independent ambulation Overall status at
--- NOTE | 2024-02-01 08:52 | PM.DS ---
DS: Admitting Diagnosis Discharge Date 02/01/24 Admitting Diagnosis Intra-Abdominal Abscess Fistula of Small Intestine PMR CAD DS: Discharge Diagnosis Discharge Diagnosis (1) Small bowel diverticular disease: Code(s): K57.10 - Diverticulosis of small intestine without perforation or abscess without bleeding Status: Acute Assessment and Plan: patient presents with varying abdominal pain and he has been experiencing intermittently over the course of the last few weeks. CT abdomen pelvis shows collection in the left side of the abdomen which may be inflammatory and small bowel with thickened wall versus diverticulum with inflammatory changes versus an abscess with fistula. admit to regular medical floor started on Zosyn Full liquids at lunch and regular diet at dinner D5NS at 100 ml per hour---stopped. Morphine for pain, Zofran from nausea Tylenol as needed for fever > 101.4 general surgery is consulted and rec's appreciated anticipating d/c tomorrow with oral antibiotics 02/01/24: Date of discharge. Pt is now asymptomatic. Will change IV Zosyn to Augmentin for a total of 10 days. Follow up with [facility] as well as PCP. Tylenol as needed on discharge Return to ER for worsening of pain or inability to tolerate po intake. (2) Sepsis: Code(s): A41.9 - Sepsis, unspecified organism Status: Resolved Assessment and Plan: Leukocytosis of 13,000 on admission, tachypnea, hypotension, and febrile 101.3. presumed infection from bowel perforation lactic acid 0.5 patient received 2 L of normal saline in the emergency room and was started on Zosyn blood cultures pending 02/01/24: Date of discharge Sepsis resolved Preliminary cultures without any growth. Continue po abx upon discharge. Follow up with PCP and [facility] at discharge. (3) CAD (coronary artery disease): Code(s): I25.10 - Atherosclerotic heart disease of [place] coronary artery without angina pectoris Status: Chronic Assessment and Plan: History of CAD with stent placement. Patient is on Plavix and ASA. continue baby asa 02/01/24: Continue home medication regimen. DS: Summary Hospital Course Reason for hospitalization: Intra-abdominal abscess Sepsis Hospital Course: This very pleasant 68 year old male pt with PMH of CAD and PMR presented and was subsequently admitted to the hospital on 01/30/24 endorsing a 10 day history of abdominal pain. In ER CT abd and pelvis showed a concern for an intraperitoneal abscess or focal perforation. He met Sepsis criteria upon admission with Leukocytosis, fever of 101.3, and known source. He was started on IV abx and [facility], Dr. Stauffer, was consulted for co-management. During his hospitalization, he has been receiving IV abx, and slowly has had resolution of his pain and has been able to tolerate oral intake without N/V. He is passing flatus without difficulty. His sepsis has resolved. Per their note, Gen [facility] is agreeable to discharge today on oral abx for 7-10 days if pt was still doing well today. This morning he reports no pain for this provider even with deep palpation of the abdomen. He is independently ambulatory and has no N/V. He has been eating >75% of his meals and without difficulty or complaint. He would like to go home at this time. He is agreeable to discharge on oral abx therapy with Augmentin, and follow up as outpt. Status at Discharge Cognitive/behavioral status at discharge: At baseline Functional status at discharge: independent ambulation Overall status at discharge: patient is back to baseline Time Spent with Patient Time attestation: Total time spent providing and/or coordinating discharge services: Time spent: Greater than 30 minutes Specific discharge activities: medications, discharge instructions and follow up. Exam Narrative: General: appears comfortable, in no acute distress Respiratory: breathing is unlabored with e
--- NOTE | 2024-02-01 11:16 | PM.PNGS ---
Progress Note: A&P Assessment and Plan (1) Small bowel diverticular disease: Code(s): K57.10 - Diverticulosis of small intestine without perforation or abscess without bleeding Status: Acute Assessment and Plan: Patient has a small contained leak or perforation of a small bowel diverticulum. This has responded to non operative therapy and IV antibiotics. He continues to improve and WBC count remains normal. He is tolerating a regular diet. He is stable for discharge from a surgical standpoint today. We would recommend discharging him on a 7-10 day course of oral antibiotics. No follow-up with surgery needed. Plan I have discussed the patient's case and plan of care with Dr. Stauffer. Subjective Subjective Date/Time Seen: 02/01/24 11:16 Patient reports: no new complaints, feels better, flatus, bowel movement and afebrile Interval history: Patient doing well. No complaints. No abdominal pain, nausea, or vomiting. Exam Const: General: comfortable and no acute distress Orientation/consciousness: patient oriented x3 GI: Inspection: non-distended GI Palp: Yes Soft to palpation, No Tenderness to palpation present (GI), No Guarding due to palpation present (GI) and No Rebound tenderness present Percussion: Yes normal to percussion Auscultation: normal bowel sounds Objective Data Vital Signs Vital Signs: Vital Signs - 24 hr 01/31/24 14:00 01/31/24 20:39 01/31/24 21:32 Temperature 98.0 F 99.0 F Pulse Rate 61 64 Respiratory Rate 20 20 Blood Pressure 104/65 107/65 Pulse Oximetry 98 100 99 Oxygen Delivery Room Air 02/01/24 05:33 02/01/24 08:42 02/01/24 08:40 Temperature 98.4 F Pulse Rate 56 L 75 Respiratory Rate 22 H 16 Blood Pressure 123/76 113/75 Pulse Oximetry 97 97 Oxygen Delivery Room Air Intake/Output Intake/Output: Intake & Output 01/29/24 01/30/24 01/31/24 02/01/24 23:59 23:59 23:59 23:59 Intake Total 1000 2750 2520 640 Balance 1000 2750 2520 640 Meds/Results Medications: Active Medications Generic Name Dose Route Start Last Admin Trade Name Freq PRN Reason Stop Dose Admin Acetaminophen 120 mg 01/30/24 07:59 Acetaminophen 120 Mg Suppository RECTAL Q4H PRN Mild Pain (1-3) or Fever Acetaminophen 325 mg 01/30/24 07:59 Acetaminophen 325 Mg Tablet PO Q4H PRN Mild Pain (1-3) or Fever Amlodipine Besylate 5 mg 02/01/24 09:00 02/01/24 08:42 Amlodipine Besylate 5 Mg Tablet PO 5 mg DAILY DONATO Administration Aspirin 81 mg 02/01/24 09:00 02/01/24 08:39 Aspirin 81 Mg Chewable Tablet PO 81 mg DAILY DONATO Administration Atorvastatin Calcium 40 mg 02/01/24 09:00 02/01/24 08:39 Atorvastatin 40 Mg Tablet PO 40 mg DAILY DONATO Administration Ezetimibe 10 mg 02/01/24 09:00 02/01/24 08:39 Ezetimibe 10 Mg Tablet PO 10 mg DAILY DONATO Administration Piperacillin/Tazobactam/Dextrose 3.375 gm in 50 mls @ 100 mls/hr 01/30/24 06:00 02/01/24 05:40 Zosyn 3.375 Gm/Ns 50 Ml IVPB 100 mls/hr Q6H DONATO Administration Morphine Sulfate 4 mg 01/29/24 23:54 01/31/24 20:06 Morphine Sulfate (*Crx) 4 Mg/Ml Inj IV PUSH 4 mg Q2H PRN Administration Pain Rated 7-10 Ondansetron HCl 4 mg 01/30/24 05:19 Ondansetron Inj 4 Mg/2 Ml Vial IV PUSH Q6H PRN Nausea And Vomiting Pantoprazole Sodium 40 mg 01/31/24 09:00 02/01/24 08:39 Pantoprazole 40 Mg Tablet PO 40 mg DAILY DONATO Administration Paroxetine HCl 20 mg 01/31/24 21:00 01/31/24 20:07 Paroxetine 20 Mg Tablet PO 20 mg HS DONATO Administration Radiology Results: ITS Impressions Chest X-Ray 01/29/24 22:05 IMPRESSION: No acute cardiopulmonary pathology. Possible nodule in the right suprahilar area. Three-month follow-up advised. Abdomen/Pelvis CT 01/29/24 23:05 IMPRESSION: 1. Collection is seen in the left side of the abdomen which may be inflammatory in small bowel with thickened wall versus divert
== END 2024-02-01 11:50 | disposition home or self-care (01) | DRG 872 ==
LOC: ANHED 23:54 → ANH3MEDSUR 01-30 02:08
PROVIDERS: Emergency Medicine; Nurse Practitioner Acute Care; Surgery; Admitting Provider Internal Medicine; Emergency Provider Physician Assistant; PCP Hospitalist; Visit Provider Nurse Practitioner Adult Health
DX: A41.9 Sepsis, unspecified organism (principal); K57.00 Diverticulitis of small intestine with perforation and abscess without bleeding; K57.30 Diverticulosis of large intestine without perforation or abscess without bleeding; I25.10 Atherosclerotic heart disease of native coronary artery without angina pectoris; M35.3 Polymyalgia rheumatica; E78.5 Hyperlipidemia, unspecified; Z86.010 Personal history of colon polyps; Z95.5 Presence of coronary angioplasty implant and graft; Z79.02 Long term (current) use of antithrombotics/antiplatelets; Z79.82 Long term (current) use of aspirin
CPT/HCPCS: 36415; 71046; 74177; 80048; 80053; 81003; 83605; 83690; 83735; 84484; 85025; 85610; 85730; 87040; 87637; 93005; 96361; 96365; 96375; 99285; A9270; G0378; J2270; J2405; J2470; J2543; J7030; J7042; Q9967

== ENCOUNTER 2024-02-22 01:37 | Day surgery (SDC) | payer MEDICARE, OTHER, SELFPAY ==
[2024-02-04 13:08] VITALS: BMI 30.4
--- NOTE | 2024-02-08 14:54 | SUR.PREOP ---
Patient advised to stop taking his Plavix on 02/13 and to hold this medication until the GI provider tells patient to resume the medication.
--- NOTE | 2024-02-19 16:51 | PC.NURSE ---
Patient called this am stating he had forgotten to start holding his Plavix with last dose on , he remembered on 02/18/2024 that he was suppose to hold it and started that day. I sent message to Dr. Cruz via Kavitha Johnson RN Nurse Piano Technician and he is ok with proceeding on Thursday but wanted pt to know if there is a sig. size polyp he would not be able to remove it and he would need to redo pre and hold Plavix for a full 7 days and return for another colonoscopy. This was explained to the patient and he is willing proceed with Thursday procedure.
[2024-02-22 05:11] VITALS: BP 108/79; PULSE 58; RESP 24; O2SAT 98
[2024-02-22 06:34] VITALS: BP 107/82; PULSE 99; RESP 16; TEMP 36; O2SAT 98
--- NOTE | 2024-02-22 06:43 | WPDANESEPPF ---
Anes - Initial Pre Proc Eval Procedure: Operation Date: 02/22/24 07:30 Proposed Procedures p Esophagogastroduodenoscopy & Colonoscopy - Ovidio Cruz MD Date/Time: 02/22/24 06:43 Surgeon: Ovidio Cruz MD Pre Op Diagnosis: Gastritis, pers. hx. colon polyps Patient Data Age: 68 Gender: M Height: 1.85 m Weight: 101.4 kg Last Vital Signs Pulse 99 02/22/24 06:34 Resp 16 02/22/24 06:34 BP 107/82 02/22/24 06:34 Pulse Ox 98 02/22/24 06:34 O2 Del Method Room Air 02/22/24 06:34 Allergies Allergy/AdvReac Type Severity Reaction Status Date / Time No Known Allergies Allergy Unknown Verified 02/22/24 06:25 Home Medications Medication Instructions Recorded Confirmed Type paroxetine HCl 20 mg tablet 20 mg PO HS 04/27/20 02/22/24 History amlodipine 5 mg tablet 5 mg PO DAILY 11/09/23 02/22/24 History aspirin 81 mg chewable tablet 81 mg PO DAILY 11/09/23 02/22/24 History atorvastatin 40 mg tablet 40 mg PO DAILY 11/09/23 02/22/24 History clopidogrel 75 mg tablet 75 mg PO DAILY 11/09/23 02/22/24 History ezetimibe 10 mg tablet 10 mg PO DAILY 11/09/23 02/22/24 History pantoprazole 40 mg tablet,delayed 40 mg PO DAILY 01/30/24 02/22/24 History release amoxicillin 875 mg-potassium 1 tablet PO Q12H #20 tabs 01/31/24 02/22/24 Rx clavulanate 125 mg tablet Patient hx anesthesia problems: none Family hx anesthesia problems: none Results Review: All pre-operative results and documents have been reviewed as part of the pre-operative evaluation. [facility] [place] Past Medical History Medical History Adenomatous colon polyp CAD (coronary artery disease) Obesity Orthostatic hypotension (~12/14/23) PMR (polymyalgia rheumatica) Surgical History Surgical History History of appendectomy ~1979 History of cholecystectomy ~[id number] History of heart artery stent Family History Family History Sibling Cardiomyopathy Diabetes mellitus Father Emphysema lung Mother No problems noted. Social History Social History Social History: Patient lives at home with his , Prabha, whom he designates as his surrogate MDM. He wishes to be Full Code. His PCP is Dr. 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 Gender identity (if verbalized by the patient): Male Spiritual care concerns: No Anes - Eval Final PreProcedure Day of Procedure 02/22/24 06:43 Patient weight: overweight Heart: regular rate and rhythm Lungs: clear to auscultation Airway: Mallampati scale class II Neurological: alert and oriented Last oral intake: >/= 8 hours ASA classification: III Emergent: no Anesthetic plan: proceed Anesthesia type and monitoring: general GIVS and standard monitoring Results Review: All pre-operative results and documents have been reviewed as part of the pre-operative evaluation. Informed Consent: The patient's anesthetic plan and its attendant risks and benefits were discussed with the patient/family/POA. Questions were solicited and answers provided to the satisfaction of the patient/family/POA.
[2024-02-22] MEDS: LACTATED RINGERS 1,000 ML 150 ML IV CONT (06:56)
--- NOTE | 2024-02-22 08:06 | PM.IMHP ---
H&P: HPI History of Present Illness Date/Time: 02/22/24 08:06 Chief Complaint: history of colon polyps ; recent small bowel abscess Narrative: The patient was recently admitted for a small bowel abscess with microperforation got treated conservatively. An EGD was planned at that time to evaluate further lesions. In addition, he had several colonic polyps he last colonoscopy 4 years ago, here for follow-up. Review of Systems Review of Systems: All systems reviewed & are unremarkable except as noted in HPI and below PMFSH Past Medical History Medical History Adenomatous colon polyp CAD (coronary artery disease) Obesity Orthostatic hypotension (~12/14/23) PMR (polymyalgia rheumatica) Surgical History Surgical History History of appendectomy ~1979 History of cholecystectomy ~[id number] History of heart artery stent Family History Family History Sibling Cardiomyopathy Diabetes mellitus Father Emphysema lung Mother No problems noted. Social History Social History Social History: Patient lives at home with his , Prabha, whom he designates as his surrogate MDM. He wishes to be Full Code. His PCP is Dr. 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 Gender identity (if verbalized by the patient): Male Spiritual care concerns: No Meds Home Medications and Allergies Home Medications Medication Instructions Recorded Confirmed Type paroxetine HCl 20 mg tablet 20 mg PO HS 04/27/20 02/22/24 History amlodipine 5 mg tablet 5 mg PO DAILY 11/09/23 02/22/24 History aspirin 81 mg chewable tablet 81 mg PO DAILY 11/09/23 02/22/24 History atorvastatin 40 mg tablet 40 mg PO DAILY 11/09/23 02/22/24 History clopidogrel 75 mg tablet 75 mg PO DAILY 11/09/23 02/22/24 History ezetimibe 10 mg tablet 10 mg PO DAILY 11/09/23 02/22/24 History pantoprazole 40 mg tablet,delayed 40 mg PO DAILY 01/30/24 02/22/24 History release amoxicillin 875 mg-potassium 1 tablet PO Q12H #20 tabs 01/31/24 02/22/24 Rx clavulanate 125 mg tablet Allergies Allergy/AdvReac Type Severity Reaction Status Date / Time No Known Allergies Allergy Unknown Verified 02/22/24 06:52 Vital Signs Vital Signs - 24 hr 02/22/24 06:34 Temperature 96.8 F L Pulse Rate 99 Respiratory Rate 16 Blood Pressure 107/82 Pulse Oximetry 98 Oxygen Delivery Room Air Assessment and Plan Assessment and plan (1) Small bowel diverticular disease: Code(s): K57.10 - Diverticulosis of small intestine without perforation or abscess without bleeding Status: Acute (2) Fistula of small intestine: Code(s): K63.2 - Fistula of intestine Status: Acute (3) Adenomatous colon polyp: Code(s): D12.6 - Benign neoplasm of colon, unspecified Status: Acute Plan Patient deemed a good candidate for colonoscopy and upper endoscopy, we will proceed.
--- NOTE | 2024-02-22 08:24 | SUR.OPER ---
EGD end time: 815, Colonoscopy start time: 822
[2024-02-22] MEDS: SIMETHICONE ORAL SUSPENSION 20 MG/0.3 ML 30 ML BOTTLE 0.6 ML IRRIGATION (08:32)
[2024-02-22 08:45] VITALS: BP 105/54; PULSE 57; RESP 15; O2SAT 98
[2024-02-22 08:55] VITALS: BP 100/70; PULSE 59; RESP 16; O2SAT 98
--- NOTE | 2024-02-22 08:59 | SUR.PHASEII ---
Pt. to resume Plavix today per Dr. Cruz instructions.
== END 2024-02-22 09:17 | disposition home or self-care (01) ==
PROVIDERS: PCP Hospitalist; Visit Provider Internal Medicine Gastroenterology
PROC: 0DJ08ZZ Inspection of Upper Intestinal Tract, Via Natural or Artificial Opening Endoscopic (ICD-10-PCS; CPT 43235; principal; 2024-02-22 07:30)
DX: Z09 Encounter for follow-up examination after completed treatment for conditions other than malignant neoplasm (principal); D12.2 Benign neoplasm of ascending colon; K29.50 Unspecified chronic gastritis without bleeding; K29.80 Duodenitis without bleeding; K57.30 Diverticulosis of large intestine without perforation or abscess without bleeding; I25.10 Atherosclerotic heart disease of native coronary artery without angina pectoris; I95.1 Orthostatic hypotension; M35.3 Polymyalgia rheumatica; Z79.82 Long term (current) use of aspirin; Z79.02 Long term (current) use of antithrombotics/antiplatelets; Z98.890 Other specified postprocedural states; Z90.49 Acquired absence of other specified parts of digestive tract; Z95.5 Presence of coronary angioplasty implant and graft
CPT/HCPCS: 43239; 45385; 88305; 88342; J1596; J2003; J2371; J2704; J7120

== ENCOUNTER 2024-09-05 13:55 | Outpatient (CLI) | payer MEDICARE, OTHER, SELFPAY ==
[2024-09-05 14:37] LABS: Basophils Absolute Auto 0.1 K/mm3 (0.0-0.1); Basophils Percent Auto 1.3 % (0.2-1.2); Eosinophils Absolute Auto 0.3 K/mm3 (0-0.3); Hematocrit 41.7 % (42.0-52.0); Hemoglobin 14.1 g/dL (14.0-18.0); Immature Granulocyte Absolute 0.01 K/mm3 (0.00-0.031); Immature Granulocyte Percent A 0.2 % (0-0.5); Lymphocytes Absolute Auto 1.96 K/mm3 (0.9-3.2); Lymphocytes Percent Auto 30.7 % (18.3-44.2); Mean Corpuscular HGB Conc 33.8 g/dl (32-36); Mean Corpuscular Hemoglobin 32.1 pg (26-34); Mean Platelet Volume 9.9 fl (7.4-10.4); Monocytes Absolute Auto 0.4 K/mm3 (0.1-0.6); Monocytes Percent Auto 6.3 % (2.6-8.5); Neutrophils Absolute Auto 3.6 K/mm3 (1.3-6.7); Neutrophils Percent Auto 56.5 % (45.5-73.1); Platelet Count Result 235 k/mm3 (150-375); Red Blood Count 4.39 M/mm3 (4.6-6.20); Red Cell Distribution Width 12.8 % (11.5-14.5); White Blood Count 6.4 K/mm3 (4.5-10.0)
--- OUTSIDE RECORDS SUMMARY | 2024-09-05 16:01 | XMS_ITS | Clinical Summary ---
Author Organization [facility] Address [address] [place] [phone] Care Team Providers Care Palliative Care Coordinator Name Role Phone Jose C Patel MD Unavailable [phone] Ken Ribeiro MD Primary Care Provider [phone] Allergies No known active allergies Medications aspirin 81 mg enteric coated tablet TAKE 1 TABLET BY MOUTH EVERY DAY 90 tablet [address] (PROTONIX) 40 mg EC tablet TAKE 1 TABLET BY MOUTH EVERY DAY 100 tablet 1 4 Active ezetimibe (ZETIA) 10 mg tablet TAKE 1 TABLET BY MOUTH EVERY DAY 90 tablet 3 4 Active clopidogreL (PLAVIX) 75 mg tablet TAKE 1 TABLET BY MOUTH EVERY DAY 90 tablet 3 4 Active amLODIPine (NORVASC) 5 mg tablet TAKE 1 TABLET (5 MG TOTAL) BY MOUTH DAILY. 90 tablet 3 5 08/18/19 26 Active PARoxetine (PAXIL) 20 mg tablet TAKE 1 TABLET BY MOUTH EVERY DAY IN THE MORNING 90 tablet 3 5 Active atorvastatin (LIPITOR) 40 mg tablet TAKE 1 TABLET BY MOUTH EVERY DAY 90 tablet 1 5 Active amLODIPine (NORVASC) 5 mg tablet Take 1 tablet (5 mg total) by mouth daily 90 tablet 3 4 08/18/19 25 Discontinued PARoxetine (PAXIL) 20 mg tablet TAKE 1 TABLET BY MOUTH EVERY DAY IN THE MORNING 90 tablet 3 4 08/18/19 25 Discontinued atorvastatin (LIPITOR) 40 mg tablet TAKE 1 TABLET BY MOUTH EVERY DAY 90 tablet 1 4 08/18/19 25 Discontinued Active Problems Problem Noted Date Diagnosed Date Status post coronary artery stent placement 06/11 BYRD (dyspnea on exertion) 08/26/2022 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 02/27/2022 Coronary artery disease invo lving upper sioux coronary artery of upper sioux heart without angina pectoris 02/07/2022 Assessment & Plan (02/04/2023 5:20 PM CDT): Stable, generally well controlled; no significant chest pain at this time Continue with optimal medical management Assessment & Plan (08/20/2022 12:56 PM CDT): Some discomfort in left shoulder; new stent placed Continues to have some dyspnea Symptoms occur with activity, even brief activity Not currently working due to symptoms Has some decrease conversation Will continue to monitor; continue management of blood pressure and risk factor risk factors Continue amlodipine 5 mg daily, metoprolol 12.5 mg daily; ASA 81 mg daily, Lipitor 40 mg day, Plavix 75 mg Essential hypertension 02/07/2022 Assessment & Plan (02/04/2023 5:20 PM CDT): Stable, well controlled; blood pressure at target; continue to monitor Chest pain 12/30/2021 NSTEMI (non-ST elevated myocardial infarction) 0 12/30/2021 Overview (12/31/2021): Added automatically from request for surgery [id number] Assessment & Plan (02/04/2023 5:20 PM CDT): Stable, well controlled; no further episodes of chest pain, though does report getting out of breath easily; decreased energy No peripheral edema; LVEF of 47%; recovers quickly from dyspnea with rest Continue with optimal medical management Amlodipine 5 mg daily, ASA 81 mg daily, atorvastatin 40 mg daily, Plavix 75 mg daily Assessment & Plan (02/04/2022 1:18 PM CDT): Last LDL elevated at 141; target is less than 70 Patient reports making dietary changes, eating at home or, increasing fits intake and eating more salads Distal RCA NILESH placement Continue amlodipine 10 mg daily, ASA 81 mg daily, atorvastatin 40 mg daily, Plavix 75 mg daily Diverticular disease of colon 05/14/2020 Overview (05/14/2020): Hematochezia requiring 2 units of packed red blood cells in April 2020 Assessment & Plan (05/14/2020 9:01 AM METEOROLOGY FACULTY MEMBER): Patient went to emergency room at [facility] due to prolonged in significant rectal bleeding Colonoscopy performed which demonstrated several small polyps, as well as diverticuli Likely diagnosis of diverticulosis as cause for hematochezia, discussed with patient that he will always have diverticuli, have to be careful and avoid constipation order to reduce risk of recurrent bleeding Continue to monitor, at this time patient has no bleeding, or left-sided abdominal pain or fevers History of colonic polyps 04/25/2020 Overview (04/25/2020): Added automatically from request for surgery [id number] Assessment & Plan (05/14/2020 9:02 AM METEOROLOGY FACULTY MEMBER): Per patient, polyps were noncancerous based pathology M ni re's disease 04/16/2020 Assessment & Plan (02/04/2023 5:21 PM CDT): Stable, well controlled; no significant vertigo Continue paroxetine 20 mg daily Assessment & Plan (08/20/2022 12:56 PM CDT): Stable, well controlled; good relief with Paxil 20 mg daily Assessment & Plan (11/16/2020 11:57 AM CDT): Stable, well controlled with Paxil 20 mg Patient to continue current dose Assessment & Plan (09/03/2020 4:20 PM CDT): Well controlled with Paxil Assessment & Plan (04/16/2020 4:22 PM METEOROLOGY FACULTY MEMBER): Stable well controlled, patient is taking Paxil in nodes new episodes of dizziness while on Paxil Pure hypercholesterolemia 04/16/2020 Assessment & Plan (06/17/2021 9:24 AM METEOROLOGY FACULTY MEMBER): Stable, recheck lipid panel today; if elevated will consider starting statin therapy Encouraged patient continue to work on low-fat high-fiber diet Make dietary changes, and increased activity levels to approximately 30 moderate intensity activity 5 days per week Assessment & Plan (11/16/2020 11:56 AM CDT): Stable, ASCVD risk score is intermediate risk Patient has been working on dietary changes, continues to work on improving his regular schedule so that he can eat more fruits and vegetables with his meals PMR (polymyalgia rheumatica) 06/02/2019 Assessment & Plan (02/04/2023 5:19 PM CDT): Stable, well controlled; no significant pain at this time Continue to monitor for recurrent episode of inflammation Assessment & Plan (06/17/2021 9:25 AM METEOROLOGY FACULTY MEMBER): Stable, no significant pain; patient does report did fatigue; unclear if related to sleeping approximately 7 hours per day verses uncontrolled autoimmune disease Check CRP and ESR today for management of PMR Assessment & Plan (11/16/2020 11:58 AM CDT): Stable, bilateral shoulder pain is well controlled with meloxicam 15 mg daily Assessment & Plan (05/14/2020 9:00 AM METEOROLOGY FACULTY MEMBER): Stable, well controlled Patient reports no muscle or joint soreness associated with PMR, continuing on low-dose prednisone 2.5 mg daily Assessment & Plan (04/16/2020 4:21 PM METEOROLOGY FACULTY MEMBER): Potassium joint stiffness as patient has been off prednisone for extended duration Will restart prednisone therapy today Assessment & Plan (10/27/2019 11:59 AM CDT): History of PMR. Bilateral shoulder pain resolved with prednisone 15mg daily. Currently on prednisone 10mg daily but was able to taper to 5mg daily when on leflunomide. Will be restarting leflunomide so instructed patient to taper prednisone by 2.5mg every 2 weeks until off. Assessment & Plan (06/02/2019 11:58 AM METEOROLOGY FACULTY MEMBER): History of PMR. Bilateral shoulder pain resolved with prednisone 15mg daily. Will taper prednisone 12.5mg daily x2 weeks, then 10mg daily until seen at next visit. Seronegative rheumatoid arthritis (CMS/HCC) 07/2018 Overview (06/02/2019): Labs (04/2019): negative AVISE (04/2019): negative Hepatitis negative: 04/2019 Quantiferon negative: 04/2019 Xray Lt shld (04/18/19): negative Xray Rt shld (04/18/19): negative Xray pelvis (04/18/19): mild enthesopathic changes R greater trochanter Xray B/t hands (04/18/19): minimal IP OA US right hand/wrist (05/05/19): Moderate effusions and power doppler on examination which will have to be correlated clinically. Marked synovial thickening in the wrist and 2nd PIP joint. Moderate synovial thickening in the 2nd and 3rd PIP and 3rd PIP joints. Grade 2 effusion and grade 2 power doppler in the wrist. Grade 2 effusion and grade 1 power doppler in the 2nd MCP and 2nd PIP joints. Grade 2 effusion in the 3rd PIP joint. Grade 1 effusion and grade 1 power doppler in the radial/scaphoid joint. Assessment & Plan (02/04/2022 1:20 PM CDT): Continues to have pain in ankles, knees and wrist Patient has limited relief with Tylenol Patient reports no significant relief without Mobic, unable to take NSAIDs due to recent NSTEMI Will continue to monitor, evaluate if patient would benefit from referral to Rheumatology verses other DMARDs Assessment & Plan (06/17/2021 9:25 AM METEOROLOGY FACULTY MEMBER): Stable, continues to have hand pain that is stable; well controlled with incense Continue meloxicam 15 mg daily Assessment & Plan (09/03/2020 4:20 PM CDT): Patient like to switch from daily dose of low-dose prednisone to daily Mobic Discussed risk and benefits of both therapies and patient would like to go forward to trying low-dose NSAID Will continue with Mobic and evaluate and future to determine response to therapy Assessment & Plan (04/16/2020 4:21 PM METEOROLOGY FACULTY MEMBER): Unclear etiology, has been followed by Rheumatology with multiple medications However patient would like to manage with only prednisone 2.5 mg Medication refill today, will continue to monitor Assessment & Plan (12/27/2019 11:59 AM CDT): Moderate cdai. Synovitis without tenderness noted on peripheral exam today. Denies much benefit since restarting leflunomide however had good response in the past. Currently on prednisone 2.5mg daily but felt best on 10mg daily. Wants to stay on prednisone 10mg daily. Discussed retirement affects of systemic steroids and that while it may control his symptoms, it does not prevent long-term damage from inflammatory arthritis. Will stop leflunomide due to intolerable side effects. Will start approval of RInvoq 15mg daily. Discussed potential side effects of the medication, including but not limited to increased risk of infection, headache, diarrhea, bowel perforation, and/or lymphoma risk. Will request recent labs for review. Continue prednisone 2.5mg daily for now but will consider tapering off once Rinvoq takes effect. Follow up in 2 months. Sooner if needed. Seen with Dr. Patel. Assessment & Plan (10/27/2019 12:01 PM CDT): Low cdai. Few swollen joints without tenderness noted on peripheral exam today. Noted benefit with leflunomide and tapered prednisone 5mg daily however lost insurance and could not afford medication so increased prednisone back to 10mg daily while off leflunomide. Denied side effects with leflunomide. Restart leflunomide 20mg daily. Taper prednisone by 2.5mg every 2 weeks until off. Routine labs today. Follow up in 2 months. Sooner if needed. Assessment & Plan (06/02/2019 11:53 AM METEOROLOGY FACULTY MEMBER): US right hand/wrist (05/05/19): Moderate effusions and power doppler on examination which will have to be correlated clinically. Marked synovial thickening in the wrist and 2nd PIP joint. Moderate synovial thickening in the 2nd and 3rd PIP and 3rd PIP joints. Grade 2 effusion and grade 2 power doppler in the wrist. Grade 2 effusion and grade 1 power doppler in the 2nd MCP and 2nd PIP joints. Grade 2 effusion in the 3rd PIP joint. Grade 1 effusion and grade 1 power doppler in the radial/scaphoid joint. Did not start MTX as he was worried about intermediate project manager side effects. Continues to have synovitis with some tenderness noted on peripheral exam today. Remains on prednisone 15mg daily for suspected overlap with PMR. Based on US findings, symptoms are likely related to seronegative rheumatoid arthritis. Will start leflunomide 20mg daily. Discussed potential side effects including but not limited to increased infection, diarrhea, blood count abnormalities, and/or rash. Patient given informational handout about the medication and RA. Follow up in 6 weeks. Sooner if needed. Seen with Dr. Patel. Assessment & Plan (04/29/2019 11:21 AM METEOROLOGY FACULTY MEMBER): Serologies were unremarkable. Radiographs revealed mild enthesopathic changes to the right greater trochanter and minimal IP OA in the bilateral hands. Bilateral shoulder x-rays were normal. Currently on prednisone 15mg daily with resolve of shoulder pain but continues to complain of pain and stiffness in his hands, elbows, and ankles. Hx of gout and does not take any routine medications for this. Had 1 flare within the last year. Few swollen joints without tenderness noted on peripheral exam today. Unlikely patient's current symptoms are due to PMR as he did not notice complete resolve with increased prednisone, however shoulder pain is improved so do suspect overlap. Suspect underlying inflammatory arthritis. Advised patient to schedule right hand/wrist US. Will start MTX 12.5mg weekly and folic acid 1mg daily. Patient advised of the side effects of the medication, including but not limited to increased risk of infection, GI upset, increased LFTs, mouth sores, rash, diarrhea, and/or blood count abnormalities. Patient given an informational handout about the medication.Follow up in 1 month. Sooner if needed. Seen with Dr. Patel. Assessment & Plan (04/12/2019 9:40 AM METEOROLOGY FACULTY MEMBER): Patient presents with a history of PMR diagnosed in 2009 that initially responded to prednisone 20mg daily. Has been tapered to 5mg daily since he was first diagnosed and remained asymptomatic until recently. Noted acute onset of bilateral shoulder, hip, and ankle pain and stiffness a few months ago. Some swollen joints without tenderness noted on peripheral exam today. Reports morning stiffness lasts 30 minutes. Symptoms and exam are suspicious for PMR. Increase prednisone 15mg daily after hand US. Will order appropriate serologies, radiographs, and a right hand/wrist US to further evaluate. Follow up in 2 weeks. Sooner if needed. Seen with Dr. Patel. Impotence 07/05/2018 Assessment & Plan (06/17/2021 9:24 AM METEOROLOGY FACULTY MEMBER): Stable, poor response to Viagra 100 mg; at this time patient defers further intervention Assessment & Plan (11/16/2020 11:58 AM CDT): Not well controlled, patient reports that he is unable to get erections, the few erection see gets the he cannot maintain He no longer having intercourse with , causing some anxiety at home Will give trial of Viagra 100 mg today, if no improvement then will refer to Urology for other medical options JEMAL (generalized anxiety disorder) 06/03/2011 Assessment & Plan (02/04/2022 1:19 PM CDT): Continue Paxil 20 mg daily Assessment & Plan (06/17/2021 9:25 AM METEOROLOGY FACULTY MEMBER): Stable well controlled; patient continues to have high stress job but generally manages stressors well Continue Paxil 20 mg daily Resolved Problems Problem Noted Date Diagnosed Date Resolved Date Hematochezia 04/25/2020 05/14/2020 Overview (04/25/2020): Added automatically from request for surgery [id number] 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 Leflunomide - bloody stools; fatigue Assessment & Plan (10/27/2019 11:58 AM CDT): Hepatitis negative: 04/2019 Quantiferon negative: 04/2019 Pt wishes to avoid MTX due to retirement side effects risk. Assessment & Plan (06/02/2019 11:55 AM METEOROLOGY FACULTY MEMBER): Hepatitis negative: 04/2019 Quantiferon negative: 04/2019 Pt wishes to avoid MTX due to retirement side effects risk. 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 (current) use of systemic steroids 9 11/16/2020 Assessment & Plan (05/14/2020 8:59 AM METEOROLOGY FACULTY MEMBER): Stable, no evidence significant side effects Will likely need to perform DEXA scan in next couple of years to assess bone density Will continue to monitor blood sugars regularly with routine BMPs Assessment & Plan (04/16/2020 4:21 PM METEOROLOGY FACULTY MEMBER): Stable, no evidence of significant weight gain or insulin resistance Blood pressure mildly elevated 136/80 which may also be due to recent and activity Will continue to monitor for side effects from long-term prednisone use Assessment & Plan (12/27/2019 12:01 PM CDT): Has been on prednisone intermittently for over 10 years. Reports recent BMD per pcp. Recommend calcium and vitamin D supplementation to optimize bone health while on intermediate project manager prednisone. Assessment & Plan (10/27/2019 11:58 AM CDT): Reports recent BMD per pcp. Recommend calcium and vitamin D supplementation to optimize bone health while on intermediate project manager prednisone. Assessment & Plan (06/02/2019 11:16 AM METEOROLOGY FACULTY MEMBER): Reports recent BMD per pcp. Recommend calcium and vitamin D supplementation to optimize bone health while on intermediate project manager prednisone. Assessment & Plan (04/29/2019 11:12 AM METEOROLOGY FACULTY MEMBER): Reports recent BMD per pcp. Recommend calcium and vitamin D supplementation to optimize bone health while on intermediate project manager prednisone. Assessment & Plan (04/12/2019 9:37 AM METEOROLOGY FACULTY MEMBER): Reports recent BMD per pcp. Recommend calcium and vitamin D supplementation to optimize bone health while on retirement prednisone. Encounters Date Type Department Care Team Description 06/27/2024 8:00 AM METEOROLOGY FACULTY MEMBER Office Visit [facility] [address] [phone] Spencer Lawrence MD 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 (Primary Dx); Essential hypertension; Pure hypercholesterolemia ; Status post coronary artery stent placement 06/13/2024 7:24 AM METEOROLOGY FACULTY MEMBER - 06/13/2024 11:59 PM METEOROLOGY FACULTY MEMBER Hospital Encounter [facility] [address] [place] [id number] 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 Discharge Disposition: Discharge to home or self care 06/13/[address] [facility] at [address] [phone] Yvonne Dumont MA from Last 3 Months Immunizations Immunization Administration Dates Next Due Influenza, Quadrivalent, Hig h Dose, Preservative Free, Intrr 03/13/2022 Influenza, Quadrivalent, Rec ombinant, Egg Free, Preservative Free, Intramuscular 02/17/2020 Influenza, Trivalent, Cell Culture-based MDCK, Preservative Free, Antibiotic Free, Intramuscular 02/17/2021 Influenza, Unspecified 01/27/2023(Deferr ed: Patient Refused),05/11/2018(Deferred: Patient Refused) Pneumococcal Conjugate Pcv20 01/27/2023(Deferred : Patient Refused) ZOSTER Recombinant 11/17/2020,04/17/2020 Surgical History Surgery Date Site/Laterality Comments APPENDECTOMY GALLBLADDER SURGERY KNEE SURGERY CHOLECYSTECTOMY CARPAL TUNNEL RELEASE 12/10/2023 - 01/09/2024 Medical History Medical History Date Comments Gout Erectile dysfunction Weight loss Diverticulitis [facility] current use of therapeutic drug 020 Family History Medical History Relation Name Comments Asthma Father Relation Name Status Comments Father Mother Social History Tobacco Use Types Packs/Day Years Used Date Smoking Tobacco: Never Smokeless Tobacco: Never Tobacco Cessation:Counseling Given: Not Answered Alcohol Use Standard Drinks/Week Comments Not Currently 0 (1 standard drink = 0.6 oz pur e alcohol) Humiliation, Afraid, Rape, and Kick questionnair e Answer Date Recorded Within the last year, have y ou been afraid of your partner or ex-partner? No 01/27/2023 Within the last year, have y ou been humiliated or emotionally abused in other ways by your partner or ex-partner? No Within the last year, have y ou been kicked, hit, slapped, or otherwise physically hurt by your partner or ex-partner? No 01/27/2023 Within the last year, have y ou been raped or forced to have any kind of sexual activity by your partner or ex-partner? No 01/27/2023 Social Connection and Isolat ion Panel [NHANES] Answer Date Recorded In a typical week, how many times do you talk on the phone with family, friends, or neighbors? More than three times a week 01/27/2023 How often do you get togethe r with friends or relatives? Never 01/27/2023 How often do you attend chur or religion services? Never 01/27/2023 Do you belong to any clubs o r organizations such as anabaptism groups, unions, fraternal or athletic groups, or school groups? No 01/27/2023 How often do you attend meet ings of the clubs or organizations you belong to? Never 01/27/2023 Are you , , di vorced, , never , or living with a partner? 01/27/2023 AUDIT-C Answer Date Recorded Q1: How often do you have a drink containing alcohol? Never 01/27/2023 Q2: How many drinks containi ng alcohol do you have on a typical day when you are drinking? Patient does not drink Q3: How often do you have si x or more drinks on one occasion? Never 01/27/2023 Overall Financial Resource Strain (CARDIA) Answe r Date Recorded How hard is it for you to pa y for the very basics like food, housing, medical care, and heating? Not hard at all 01/27/2023 PHQ-2 Answer Date Recorded PHQ-2 Total Score (If total score is 3 or more points, staff should administer the PHQ-9) 0 01/27/2024 [facility] - Occupational Stress Questionnaire Answer Date Recorded Do you feel stress - tense, restless, nervous, or anxious, or unable to sleep at night because your mind is troubled all the time - these days? Only a little 01/27/2023 Exercise Vital Sign Answer Date Recorde d On average, how many days pe r week do you engage in moderate to strenuous exercise (like a brisk walk)? 0 days 01/27/2023 On average, how many minutes do you engage in exercise at this level? 0 min 01/27/2023 Hunger Vital Sign Answer Date Recorded Within the past 12 months, y ou worried that your food would run out before you got the money to buy more. Never true 01/28/20 23 Within the past 12 months, t he food you bought just didn't last and you didn't have money to get more. Never true 01/27/2023 PRAPARE - Transportation Answer Date Re corded In the past 12 months, has l ack of transportation kept you from medical appointments or from getting medications? No 01/09 In the past 12 months, has l ack of transportation kept you from meetings, work, or from getting things needed for daily living? No 01/27/2023 Housing Stability Vital Sign Answer [place] e Recorded In the last 12 months, was t here a time when you were not able to pay the mortgage or rent on time? No 01/27/2023 In the last 12 months, how many places have you lived? 1 01/27/2023 In the last 12 months, was t here a time when you did not have a steady place to sleep or slept in a chcf (including now)? No 01/27/2023 Sex and Gender Information Value Date Recorded Sex Assigned at Not on file Legal Sex Male 2:41 PM CDT Gender Identity Not on file Sexual Orientation Not on file Obstetrics History Last Filed Vital Signs Vital Sign Reading Time Taken Comments Blood Pressure 129/88 06/27/2024 8:14 AM METEOROLOGY FACULTY MEMBER Pulse 69 06/27/2024 8:14 AM METEOROLOGY FACULTY MEMBER Temperature 36.4 C (97.6 F) 01/27/2024 8:42 AM CDT Respiratory Rate 18 06/27/2024 8:14 AM METEOROLOGY FACULTY MEMBER Oxygen Saturation 97% 01/27/2024 8:42 AM CDT Inhaled Oxygen Concentration - - Weight 108 kg (238 lb) 06/27/2024 8:14 AM METEOROLOGY FACULTY MEMBER Height 185.4 cm (6' 1 ) 06/27/2024 8:14 AM METEOROLOGY FACULTY MEMBER Body Mass Index 31.4 06/27/2024 8:14 AM METEOROLOGY FACULTY MEMBER Plan of Treatment Health Maintenance Due Date Last Done Comments DTaP/Tdap/Td Vaccine (1 - Tdap) 10/19/1967 Hepatitis B Screening 1974 Pneumococcal vaccine 65+ (1 of 1 - PCV) 2006 Colon Cancer Screening-Colonoscopy 04/29/2023 04/29/2020, 04/29/2020 Prostate Cancer Screening-PSA 06/17/2023 06/17/2021 Well Visit 65+ 01/28/2024 01/27/2023 Influenza Vaccine (Season Ended) 2025 03/13/2022, 02/17/2021, 02/17/2020 Depression Screening 01/26/2025 01/27/2024, 01/27/2023, 07/24/2022, Additional history exists Fall Risk Assessment 01/26/2025 01/27/2024, 01/27/2023, 02/27/2022, Additional history exists Hepatitis C Screening Completed 04/29/2019 Colon Cancer Screening-CT Colonography Discontinued 04/29/2020, 04/29/2020 Colon Cancer Screening-DNA Stool Discontinued 04/29/20, 04/29/2020 Colon Cancer Screening-FIT Discontinued 04/29/2020, Colon Cancer Screening-Sigmoidoscopy Discontinued 04/29/2020, 04/29/2020 Zoster Vaccine Completed 11/17/2020, 04/17/2020 Medical Devices Implanted Type Area Career Education Teacher Device Identifier Shelf Expiration Date Model / Serial / Lot Keep Your Pharm[facility] Open Angio-Seal Evolution 6fr Vascular Closure [id number] - [id number] Implanted:Qty: 1 on 12/31/2021 by Tani Mcdonald MD at [facility] Other - see comments [employer] [place] 04/09/2022 [id number] / / [id number] Lopez V[employer] Stent Coronary De Rx Cocr Xience Skypoint [id number] - [id number] - [id number] Implanted:Qty: 1 on 12/31/2021 by Tani Mcdonald MD at [facility] Stent [employer] 04/23/2023 [id number] / [id number] / [id number] [employer] Synergy Xd Monorail 3mm 12mm 144cm Delivery System 1 Access Port [id number] - [id number] Implanted:Qty: 1 on 02/27/2022 by Spencer Lawrence MD at [facility] [employer] [place] 07/08/2023 [id number] / / [id number] Keep Your Pharmacy Open Angio-Seal Evolution 6fr Vascular Closure [id number] - [id number] Implanted:Qty: 1 on 02/27/2022 by Spencer Lawrence MD at [facility] [email or web address] 04/09/2022 [id number] / / [id number] Procedures Procedure Name Priority Date/Time Associated Diagnosis Comments TRANSTHORACIC ECHO (TTE) COMPLETE W DOPPLER/CF WO CONTRAST Routine 06/13/2024 7:48 AM METEOROLOGY FACULTY MEMBER 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 PSA SCREEN Routine 06/17/2021 9:04 AM METEOROLOGY FACULTY MEMBER Screening PSA (prostate specific antigen) COLONOSCOPY Routine 04/29/2020 HEPATITIS PANEL, ACUTE Routine 9 11:27 AM METEOROLOGY FACULTY MEMBER Fatigue, unspecified type from Last 3 Months or Most Recently Relevant to Health Maintenance Results * TRANSTHORACIC ECHO (TTE) COMPLETE W DOPPLER/CF WO CONTRAST (06/13/2024 7:48 AM METEOROLOGY FACULTY MEMBER) LV EF % CONS SCIMAGE Anatomical Region Laterality Modality Ultrasound 06/13/2024 7:39 AM METEOROLOGY FACULTY MEMBER Narrative 06/13/2024 10:49 AM METEOROLOGY FACULTY MEMBER [address] [place] [address] Echocardiogram Report Patient Name: PATTY MANRIQUE A : 1955 Study Date: 06/13/2024 7:39:38 AM Gender: M 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 MEASUREMENTS: 2D/MM Value Range Doppler Value Range EF Teich MM 58.0 % [ 52.0 - 72.0 ] FREDRICK Vmax 2.80 cm2 EF Mod BP 58 % [ 52 - 72 ] AV Mean PG 2 mmHg LVIDd MM 7.00 cm [ 4.20 - 5.80 ] AV Peak Luiz 1.03 m/s [ 1.00 - 1.70 ] LVIDs MM 4.80 cm [ 2.50 - 4.00 ] AV VTI 24.95 cm LVPWd MM 1.00 cm [ 0.60 - 1.00 ] LVOT Diam 2.28 cm IVSd MM 1.00 cm [ 0.60 - 1.00 ] LVOT Peak Luiz 0.71 m/s [ 0.70 - 1.10 ] LA Dimension MM 3.81 cm [ 3.00 - 4.00 ] LVOT VTI 15.96 cm AoR Diam MM 3.41 cm [ 3.10 - 3.70 ] MV E Peak Luiz 0.51 m/s [ 0.60 - 1.30 ] ACS MM 2.26 cm [ 1.50 - 2.60 ] MV A Peak Luiz 0.63 m/s [ 1.00 - 1.20 ] MV Mean PG 1 mmHg MV PHT 78 msec [ 20 - 100 ] MVA 2.80 MV Decel Time 242 msec [ 104 - 258 ] PV Peak Luiz 1.25 m/s [ 0.40 - 0.80 ] VT Peak Luiz 1.55 m/s TR Peak Luiz 2.39 m/s [ 1.00 - 2.80 ] TR Peak PG 23 mmHg RVSP 28.00 mmHg [ 10.00 - 36.00 ] E` 0.06 m/s E/E` 7.95 [ <= 10.00 ] PA Pressure 28.00 mmHg [ 10.00 - 36.00 ] 2D/MM Value Range Doppler Value Range - FINDINGS: Atrial Septum: Normal atrial septum. Left Ventricle: Normal left ventricular systolic function with no focal wall motion abnormalities. Normal left ventricular size. Normal left ventricular wall thickness. Impaired diastolic relaxation Grade I. Ejection fraction is measured at 58 %. Left Atrium: The left atrium is normal in size. Right Ventricle: Normal right ventricular size. Normal right ventricular systolic function. Right Atrium: The right atrium is normal in size. Aortic Valve: No evidence of hemodynamically significant aortic stenosis by Doppler. Aortic cusps appear mildly sclerotic. Trace aortic valve regurgitation. Mitral Valve: Mitral valve leaflets appear mildly thickened. Trivial regurgitation of the mitral valve. Pulmonic Valve: Normal structure of the pulmonic valve. Trivial regurgitation in the pulmonic valve. Tricuspid Valve: Normal structure of the tricuspid valve. Normal right ventricular systolic pressure. Pericardium: Normal pericardium with no significant pericardial effusion. Aorta: Normal aortic root. Sinus of Valsalva is normal. Aortic arch is normal. Descending aorta is normal. IVC: Normal size and normal respiratory collapse consistent with normal right atrial pressure (<5 mmHg). Pulmonary Artery: Pulmonary artery not well visualized. CONCLUSIONS: Normal left ventricular systolic function with no focal wall motion abnormalities. Normal left ventricular size. Normal left ventricular wall thickness. Impaired diastolic relaxation Grade I. Ejection fraction is measured at 58 %. Normal right ventricular size. Normal right ventricular systolic function. Mitral valve leaflets appear mildly thickened. Trivial regurgitation of the mitral valve. No evidence of hemodynamically significant aortic stenosis by Doppler. Aortic cusps appear mildly sclerotic. Trace aortic valve regurgitation. Normal structure of the tricuspid valve. Normal right ventricular systolic pressure. Normal pericardium with no significant pericardial effusion. Technically difficult study with limited visualization, subcostal views not available. 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 INDICATIONS: I25.10 Atherosclerotic heart disease of upper [place] coronary artery withoutangina pectoris. MEASUREMENTS: 2D/MM Value Range Doppler ValueRange EF Teich MM 58.0 % [ 52.0 - 72.0 ] FREDRICK Vmax 2.80cm2 EF Mod BP 58 % [ 52 - 72 ] AV Mean PG 2 mmHg LVIDd MM 7.00 cm [ 4.20 - 5.80 ] AV Peak Luiz 1.03 m/s[ 1.00 - 1.70 ] LVIDs MM 4.80 cm [ 2.50 - 4.00 ] AV VTI 24.95cm LVPWd MM 1.00 cm [ 0.60 - 1.00 ] LVOT Diam 2.28cm IVSd MM 1.00 cm [ 0.60 - 1.00 ] LVOT Peak Luiz 0.71 m/s[ 0.70 - 1.10 ] LA Dimension MM 3.81 cm [ 3.00 - 4.00 ] LVOT VTI 15.96cm AoR Diam MM 3.41 cm [ 3.10 - 3.70 ] MV E Peak Luiz 0.51 m/s[ 0.60 - 1.30 ] ACS MM 2.26 cm [ 1.50 - 2.60 ] MV A Peak Luiz 0.63 m/s[ 1.00 - 1.20 ] MV Mean PG 1 mmHg MV PHT 78 msec [ 20 - 100 ] MVA 2.80 MV Decel Time 242 msec [ 104 - 258 ] PV Peak Luiz 1.25 m/s [ 0.40 - 0.80 ] VT Peak Luiz 1.55 m/s TR Peak Luiz 2.39 m/s [ 1.00 - 2.80 ] TR Peak PG 23 mmHg RVSP 28.00 mmHg [ 10.00 - 36.00 ] E` 0.06 m/s E/E` 7.95 [ <= 10.00 ] PA Pressure 28.00 mmHg [ 10.00 - 36.00 ] 2D/MM Value Range Doppler ValueRange - FINDINGS: Atrial Septum: Normal atrial septum. Left Ventricle: Normal left ventricular systolic function with no focal wall motionabnormalities. Normal left ventricular size. Normal left ventricular wall thickness. Impaireddiastolic relaxation Grade I. Ejection fraction is measured at 58 %. Left Atrium: The left atrium is normal in size. Right Ventricle: Normal right ventricular size. Normal right ventricular systolicfunction. Right Atrium: The right atrium is normal in size. Aortic Valve: No evidence of hemodynamically significant aortic stenosis by Doppler.Aortic cusps appear mildly sclerotic. Trace aortic valve regurgitation. Mitral Valve: Mitral valve leaflets appear mildly thickened. Trivial regurgitation ofthe mitral valve. Pulmonic Valve: Normal structure of the pulmonic valve. Trivial regurgitation in thepulmonic valve. Tricuspid Valve: Normal structure of the tricuspid valve. Normal right ventricular systolicpressure. Pericardium: Normal pericardium with no significant pericardial effusion. Aorta: Normal aortic root. Sinus of Valsalva is normal. Aortic arch is normal.Descending aorta is normal. IVC: Normal size and normal respiratory collapse consistent with normal rightatrial pressure (<5 mmHg). Pulmonary Artery: Pulmonary artery not well visualized. CONCLUSIONS: Normal left ventricular systolic function with no focal wall motionabnormalities. Normal left ventricular size. Normal left ventricular wall thickness. Impaireddiastolic relaxation Grade I. Ejection fraction is measured at 58 %. Normal right ventricular size. Normal right ventricular systolicfunction. Mitral valve leaflets appear mildly thickened. Trivial regurgitation ofthe mitral valve. No evidence of hemodynamically significant aortic stenosis by Doppler.Aortic cusps appear mildly sclerotic. Trace aortic valve regurgitation. Normal structure of the tricuspid valve. Normal right ventricular systolicpressure. Normal pericardium with no significant pericardial effusion. Technically difficult study with limited visualization, subcostal viewsnot available. Electronically Signed By: Ayesha Miranda MD 06/13/2024 10:49:01 AM METEOROLOGY FACULTY MEMBER Spencer Lawrence MD CV ECHO PROCEDURES Final Result * PSA screen (06/17/2021 9:04 AM METEOROLOGY FACULTY MEMBER) PSA-Total 0.67 <=5.40 ng/mL [facility] Comment: Interpretive Data AGE SEX REFERENCE INTERVAL 0 minutes-150 years Female None 0 minutes-49 years Male None 50-59 years Male 0-3.90 60-69 years Male 0-5.40 70-79 years Male 0-6.20 80-150 years Male 0-6.20 Current interpretive data last revised 2018. Blood 06/17/2021 9:04 AM METEOROLOGY FACULTY MEMBER 06/17/2021 3:30 PM METEOROLOGY FACULTY MEMBER Ken Ribeiro MD LAB BLOOD ORDERABLES Kristin l Result [facility] [address] [place] [address] * Colonoscopy (04/29/2020) Anatomical Region Laterality Modality Other Historical Provider ENDOSCOPY PROCEDURES Kristin l Result * Hepatitis panel, acute (04/29/2019 11:27 AM METEOROLOGY FACULTY MEMBER) Hep A IgM NON-REACT JACOBO NON-REACT JACOBO [facility] [place] Comment: For additional information, please refer to http://education.Technology Keiretsu.ClearRisk/faq/KAC094 (This link is being provided for informational/ educational purposes only.) HepBsAg NON-REACT JACOBO NON-REACT JACOBO [facility] [place] Hep B core IgM NON-REACT JACOBO NON-REACT JACOBO [facility] [place] Hep C Ab NON-REACT JACOBO NON-REACT JACOBO [facility] [place] SIGNAL TO CUT-OFF 0.03 <1.00 [facility] [place] Comment: HCV antibody was non-reactive. There is no laboratory evidence of HCV infection. In most cases, no further action is required. However, if recent HCV exposure is suspected, a test for HCV RNA (test code 80378) is suggested. For additional information please refer to http://education.Slide/faq/HZM44r6 (This link is being provided for informational/ educational purposes only.) Blood specimen (specimen) 04/29/2019 11:27 AM METEOROLOGY FACULTY MEMBER 04/29/2019 11:28 AM METEOROLOGY FACULTY MEMBER Narrative Resulting Agency Comment Performing Organization Information: Site ID: [facility] Name: [facility] Address: [address] [place] [address] [place] [address] Director: Ricardo Martinez D.O., MPH [facility] MICROBIOLOGY - NERAL ORDERABLES Final Result [facility] Perez from Last 3 Months or Most Recently Relevant to Health Maintenance Insurance BETTE PREFERRED Member Subscriber Plan / Payer (Ef fective 2019-Present) Name:Patty Manrique Relation to Subscriber:Self Name:Patty Manrique Payer ID:[id number] (NAIC) Type:[facility] Address: [facility] [id number] [place] [id number] [facility] Member Subscriber Plan / Payer (Ef fective 2022-Present) Name:Patty Manrique Relation to Subscriber:Self Name:Patty Manrique Payer ID:[id number] Group ID:Not on file Type:[employer] Address: [address] [address] MEDICARE [employer] [facility] Member Subscriber Plan / Payer (Ef fective 2022-Present) Name:Blair Manriquekelly Knight Relation to Subscriber:Self Name:Blair Manriquekelly Knight Payer ID:[id number] Group ID:[id number] Type:[employer] Address: [address] [place] [address] Advance Directives For more information, please contact: [phone] * Full Code (Latest Code Status on File) Date Activated Date Inactivated Comments 02/27/2022 1:39 PM 02/28/2022 3:58 PM * Full Code Date Activated Date Inactivated Comments 12/30/2021 3:51 PM 01/01/2022 3:30 PM Care Teams Palliative Care Coordinator Relationship Specialty Start Date End Date Ken Ribeiro MD [address] [place] [address] PCP - General Family Medicine 04/16/20 Jose C Patel MD [address] [facility] [address] [place] [address] Consulting Physician Rheumatology 03/15/19
--- OUTSIDE RECORDS SUMMARY | 2024-09-05 16:01 | XMS_ITS | Encounter Summary ---
Author Organization [facility] Health Address [address] [place] [address] Care Team Providers Care Glaze Mixer Name Role Phone Unavailable Primary Care Provider Unavailabl e Reason for Visit * Reason Comments Refill Request Encounter Details Date Type Department Care Team (Late st Contact Info) Description 02/10/2023 Refill [facility] [address] [facility], [address] [place] [address] Tani Mcdonald MD [address] [place] [address] [address] Refill Request Social History Tobacco Use Types Packs/Day Years Used Date Smoking Tobacco: Never Assessed Sex and Gender Information Value Date Recorded Sex Assigned at Not on file 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
--- OUTSIDE RECORDS SUMMARY | 2024-09-05 16:01 | XMS_ITS | Referral Summary ---
Author Organization [facility] Address [address] [place] [id number] Care Team Providers Care Recruiting Internship Name Role Phone Jose C Patel MD Unavailable [phone] Ken Ribeiro MD Primary Care Provider [phone] Encounters Date Type Department Care Team Description 06/27/2024 8:00 AM HEAD KNITTING MACHINE FIXER Office Visit [facility] at [address] [place] [phone] Spencer Lawrence MD Coronary artery disease involving [place] coronary artery of [place] heart without angina pectoris (Primary Dx); Essential hypertension; Pure hypercholesterolemia ; Status post coronary artery stent placement 06/13/2024 Telephone [facility] at [address] [phone] Yvonne Dumont MA 06/13/2024 7:24 AM HEAD KNITTING MACHINE FIXER - 06/13/2024 11:59 PM HEAD KNITTING MACHINE FIXER Hospital Encounter [facility] [address] [place] [id number] Coronary artery disease involving [place] coronary artery of [place] heart without angina pectoris Discharge Disposition: Discharge to home or self care from Last 3 Months Allergies No known active allergies Medications aspirin [...] BYRD (dyspnea on exertion) 08/26/2022 CAD in [place]la artery 02/27/2022 Coronary artery disease invo lving [place] coronary artery of [place] heart without angina pectoris 02/07/2022 Assessment & [...] (12/31/2021): Added automatically from request for surgery [id number] Assessment & Plan (02/04/2023 5:20 PM CDT): [...] 2020 Assessment & Plan (05/14/2020 9:01 AM HEAD KNITTING MACHINE FIXER): Patient went to emergency room at [facility] due to prolonged in significant rectal bleeding [...] (04/25/2020): Added automatically from request for surgery [id number] Assessment & Plan (05/14/2020 9:02 AM HEAD KNITTING MACHINE FIXER): Per patient, polyps were noncancerous based pathology [...] Paxil Assessment & Plan (04/16/2020 4:22 PM HEAD KNITTING MACHINE FIXER): Stable well controlled, patient is taking Paxil in nodes new episodes of dizziness while on Paxil Pure hypercholesterolemia 04/16/2020 Assessment & Plan (06/17/2021 9:24 AM HEAD KNITTING MACHINE FIXER): Stable, recheck lipid panel today; if elevated [...] inflammation Assessment & Plan (06/17/2021 9:25 AM HEAD KNITTING MACHINE FIXER): Stable, no significant pain; patient does report did fatigue; unclear if related to sleeping approximately 7 hours per day verses uncontrolled autoimmune disease Check CRP and ESR today for management of PMR Assessment & Plan (11/16/2020 11:58 AM CDT): Stable, bilateral shoulder pain is well controlled with meloxicam 15 mg daily Assessment & Plan (05/14/2020 9:00 AM HEAD KNITTING MACHINE FIXER): Stable, well controlled Patient reports no muscle or joint soreness associated with PMR, continuing on low-dose prednisone 2.5 mg daily Assessment & Plan (04/16/2020 4:21 PM HEAD KNITTING MACHINE FIXER): Potassium joint stiffness as patient has been [...] off. Assessment & Plan (06/02/2019 11:58 AM HEAD KNITTING MACHINE FIXER): History of PMR. Bilateral shoulder pain resolved [...] DMARDs Assessment & Plan (06/17/2021 9:25 AM HEAD KNITTING MACHINE FIXER): Stable, continues to have hand pain that [...] therapy Assessment & Plan (04/16/2020 4:21 PM HEAD KNITTING MACHINE FIXER): Unclear etiology, has been followed by Rheumatology [...] to stay on prednisone 10mg daily. Discussed chcf affects of systemic steroids and that while [...] needed. Assessment & Plan (06/02/2019 11:53 AM HEAD KNITTING MACHINE FIXER): US right hand/wrist (05/05/19): Moderate effusions and [...] start MTX as he was worried about chcf side effects. Continues to have synovitis with [...] Patel. Assessment & Plan (04/29/2019 11:21 AM HEAD KNITTING MACHINE FIXER): Serologies were unremarkable. Radiographs revealed mild enthesopathic [...] Patel. Assessment & Plan (04/12/2019 9:40 AM HEAD KNITTING MACHINE FIXER): Patient presents with a history of PMR [...] 07/05/2018 Assessment & Plan (06/17/2021 9:24 AM HEAD KNITTING MACHINE FIXER): Stable, poor response to Viagra 100 mg; [...] daily Assessment & Plan (06/17/2021 9:25 AM HEAD KNITTING MACHINE FIXER): Stable well controlled; patient continues to have high stress job but generally manages stressors well Continue Paxil 20 mg daily Resolved Problems Problem Noted Date Diagnosed Date Resolved Date Hematochezia 04/25/2020 05/14/2020 Overview (04/25/2020): Added automatically from request for surgery [id number] [facility] current use of therapeutic drug 06/02/2019 06/17/2021 Assessment & Plan (12/27/2019 12:01 PM CDT): Hepatitis negative: 04/2019 Quantiferon negative: 04/2019 Pt wishes to avoid MTX due to termite treater side effects risk. Leflunomide - bloody stools; fatigue Assessment & Plan (10/27/2019 11:58 AM CDT): Hepatitis negative: 04/2019 Quantiferon negative: 04/2019 Pt wishes to avoid MTX due to chcf side effects risk. Assessment & Plan (06/02/2019 11:55 AM HEAD KNITTING MACHINE FIXER): Hepatitis negative: 04/2019 Quantiferon negative: 04/2019 Pt wishes to avoid MTX due to termite treater side effects risk. [facility] (current) use of systemic steroids 9 11/16/2020 Assessment & Plan (05/14/2020 8:59 AM HEAD KNITTING MACHINE FIXER): Stable, no evidence significant side effects Will likely need to perform DEXA scan in next couple of years to assess bone density Will continue to monitor blood sugars regularly with routine BMPs Assessment & Plan (04/16/2020 4:21 PM HEAD KNITTING MACHINE FIXER): Stable, no evidence of significant weight gain [...] supplementation to optimize bone health while on termite treater prednisone. Assessment & Plan (10/27/2019 11:58 AM CDT): Reports recent BMD per pcp. Recommend calcium and vitamin D supplementation to optimize bone health while on termite treater prednisone. Assessment & Plan (06/02/2019 11:16 AM HEAD KNITTING MACHINE FIXER): Reports recent BMD per pcp. Recommend calcium and vitamin D supplementation to optimize bone health while on termite treater prednisone. Assessment & Plan (04/29/2019 11:12 AM HEAD KNITTING MACHINE FIXER): Reports recent BMD per pcp. Recommend calcium and vitamin D supplementation to optimize bone health while on termite treater prednisone. Assessment & Plan (04/12/2019 9:37 AM HEAD KNITTING MACHINE FIXER): Reports recent BMD per pcp. Recommend calcium and vitamin D supplementation to optimize bone health while on chcf prednisone. Immunizations Immunization Administration Dates Next Due Influenza, Quadrivalent, Hig h Dose, Preservative Free, Intrr 03/13/2022 Influenza, Quadrivalent, Rec ombinant, Egg Free, Preservative Free, Intramuscular 02/17/2020 Influenza, Trivalent, Cell Culture-based MDCK, Preservative Free, Antibiotic Free, Intramuscular 02/17/2021 Influenza, Unspecified 01/27/2023(Deferr ed: Patient Refused),05/11/2018(Deferred: Patient Refused) Pneumococcal Conjugate Pcv20 01/27/2023(Deferred : Patient Refused) ZOSTER Recombinant 11/17/2020,04/17/2020 Social History Tobacco Use Types Packs/Day Years [...] 01/27/2023 How often do you attend chur ch or lutheran services? Never 01/27/2023 Do you belong to any clubs o r organizations such as baptism groups, unions, fraternal or athletic groups, or [...] staff should administer the PHQ-9) 0 01/27/2024 [facility] - Occupational Stress [...] on file Sexual Orientation Not on file Last Filed Vital Signs Vital Sign Reading Time Taken Comments Blood Pressure 129/88 06/27/2024 8:14 AM HEAD KNITTING MACHINE FIXER Pulse 69 06/27/2024 8:14 AM HEAD KNITTING MACHINE FIXER Temperature 36.4 C (97.6 F) 01/27/2024 8:42 AM CDT Respiratory Rate 18 06/27/2024 8:14 AM HEAD KNITTING MACHINE FIXER Oxygen Saturation 97% 01/27/2024 8:42 AM CDT Inhaled Oxygen Concentration - - Weight 108 kg (238 lb) 06/27/2024 8:14 AM HEAD KNITTING MACHINE FIXER Height 185.4 cm (6' 1 ) 06/27/2024 8:14 AM HEAD KNITTING MACHINE FIXER Body Mass Index 31.4 06/27/2024 8:14 AM HEAD KNITTING MACHINE FIXER Plan of Treatment Not on file Medical Devices Implanted Type Area 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 Plant 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 Device Identifier Shelf Expiration Date Model / Serial / Lot [employer]ita Angio-Seal Evolution 6fr Vascular Closure [id number] - [id number] Implanted:Qty: 1 on 12/31/2021 by Tani Mcdonald MD at [facility] Other - see comments [employer] 04/09/2022 [id number] / / [id number] Lopez Vascular Stent Coronary De Rx Cocr Xience Skypoint [id number] - [id number] - [id number] Implanted:Qty: 1 on 12/31/2021 by Tani Mcdonald MD at [facility] Stent Loepz Vascular 04/23/2023 [id number] / [id number] / [id number] [employer] Synergy Xd Monorail 3mm 12mm 144cm Delivery System 1 Access Port [id number] - [id number] Implanted:Qty: 1 on 02/27/2022 by Spencer Lawrence MD at [facility] [employer] [place] 07/08/2023 [id number] / / [id number] [employer] Angio-Seal Evolution 6fr Vascular Closure [id number] - [id number] Implanted:Qty: 1 on 02/27/2022 by Spencer Lawrence MD at [facility] [employer] 04/09/2022 [id number] / / [id number] Procedures Procedure Name Priority Date/Time Associated Diagnosis Comments TRANSTHORACIC ECHO (TTE) COMPLETE W DOPPLER/CF WO CONTRAST Routine 06/13/2024 7:48 AM HEAD KNITTING MACHINE FIXER Coronary artery disease involving [place] coronary artery of [place] heart without angina pectoris PSA SCREEN Routine 06/17/2021 9:04 AM HEAD KNITTING MACHINE FIXER Screening PSA (prostate specific antigen) COLONOSCOPY Routine 04/29/2020 HEPATITIS PANEL, ACUTE Routine 9 11:27 AM HEAD KNITTING MACHINE FIXER Fatigue, unspecified type from Last 3 Months or Most Recently Relevant to Health Maintenance Results * TRANSTHORACIC ECHO (TTE) COMPLETE W DOPPLER/CF WO CONTRAST (06/13/2024 7:48 AM HEAD KNITTING MACHINE FIXER) LV EF % CONS SCIMAGE Anatomical Region Laterality Modality Ultrasound 06/13/2024 7:39 AM HEAD KNITTING MACHINE FIXER Narrative 06/13/2024 10:49 AM HEAD KNITTING MACHINE FIXER [address], [place] [address] Echocardiogram Report Patient Name: PATTY MANRIQUE A : 1955 Study Date: 06/13/2024 7:39:38 AM Gender: M 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 INDICATIONS: I25.10 Atherosclerotic heart disease of [place] coronary artery without angina pectoris. 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 INDICATIONS: I25.10 Atherosclerotic heart disease of [place] coronary artery withoutangina pectoris. MEASUREMENTS: 2D/MM Value [...] 1.25 m/s [ 0.40 - 0.80 ] ID Peak Luiz 1.55 m/s TR Peak Luiz [...] By: Ayesha Miranda MD 06/13/2024 10:49:01 AM HEAD KNITTING MACHINE FIXER us Spencer Lawrence MD CV ECHO PROCEDURES Final Result * PSA screen (06/17/2021 9:04 AM HEAD KNITTING MACHINE FIXER) PSA-Total 0.67 <=5.40 ng/mL [facility] Comment: Interpretive Data AGE SEX REFERENCE INTERVAL 0 minutes-150 years Female None 0 minutes-49 years Male None 50-59 years Male 0-3.90 60-69 years Male 0-5.40 70-79 years Male 0-6.20 80-150 years Male 0-6.20 Current interpretive data last revised 2018. Blood 06/17/2021 9:04 AM HEAD KNITTING MACHINE FIXER 06/17/2021 3:30 PM HEAD KNITTING MACHINE FIXER us Ken Ribeiro MD LAB BLOOD ORDERABLES Kristin dockery Result [facility] [address] [address] [place] [place] [address] * Colonoscopy (04/29/2020) Anatomical Region Laterality Modality Other Historical Provider ENDOSCOPY PROCEDURES Kristin l Result * Hepatitis panel, acute (04/29/2019 11:27 AM HEAD KNITTING MACHINE FIXER) Hep A IgM NON-REACT JACOBO NON-REACT JACOBO [facility] [place] Comment: For additional information, please refer to http://Pull/faq/NBG700 (This link is being provided for informational/ [...] a test for HCV RNA (test code 56854) is suggested. For additional information please refer to http://Nudge.Bookmycab/faq/TKP33r8 (This link is being provided for informational/ educational purposes only.) Blood specimen (specimen) 04/29/2019 11:27 AM HEAD KNITTING MACHINE FIXER 04/29/2019 11:28 AM HEAD KNITTING MACHINE FIXER Narrative Resulting Agency Comment Performing Organization Information: Site ID: [id number] Name: [facility] Address: [address] [place] [address] [place] [id number] Director: Ricardo Martinez D.O., VIOLETA [facility] MICROBIOLOGY - NERAL ORDERABLES Final Result [facility] from Last 3 Months or Most Recently Relevant to Health Maintenance Insurance BETTE PREFERRED Member Subscriber Plan / Payer (Ef fective 2019-Present) Name:Patty Manrique Relation to Subscriber:Self Name:Patty Manrique Payer ID:[id number] (NAIC) Type:[facility] Address: [facility] [address] [place] [address] BLUE ACCESS OOS Member Subscriber Plan / Payer ( fective 2019-Present) Name:Patty Manrique Relation to Subscriber:Self Name:Patty Manrique Payer ID:[id number] (NAIC) Type:[facility] Address: [facility] [id number] [place] [address] [facility] Member Subscriber Plan / Payer ( fective 2019-Present) Name:Patty Manrique Relation to Subscriber:Self Name:Patty Manrique Payer ID:[id number] (NAIC) Type:[facility] Address: [place] [address] MEDICARE [facility] MEDICARE [facility] [place] [address] Advance Directives For more information, please contact: [phone] * Full Code (Latest Code Status on File) Date Activated Date Inactivated Comments 02/27/2022 1:39 PM 02/28/2022 3:58 PM * Full Code Date Activated Date Inactivated Comments 12/30/2021 3:51 PM 01/01/2022 3:30 PM Care Teams Recruiting Internship Relationship Specialty Start Date End [place] [address] PCP - General Family Medicine 04/16/20 Jose C Patel MD [address] [facility] [address] [place] [address] Consulting Physician Rheumatology 03/15/19
--- OUTSIDE RECORDS SUMMARY | 2024-09-05 16:01 | XMS_ITS | Clinical Summary ---
Author Organization [facility] Address [address] [place] [address] Care Team Providers Care Emergency Medical Dispatcher Name Role Phone Unavailable Primary Care Provider Unavailabl e Source Comments [facility],non-owned Affiliates and Associated Physician Practices is amultiple site organization consisting of ambulatory clinics and hospital sitesin [place], [place], [place] and [place]. This disclosure is being madepursuant to the Care Everywhere program and may not contain all information available regarding this patient. Last updated 18.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 Gender Identity Not on file Sexual Orientation Not on file Plan of Treatment Health Maintenance Due Date Last Done Comments COLOGUARD (AGES 45-75) - COL ON CA SCREENING 1955 COLON MONITORING 1955 COLONOSCOPY - COLON CA SCREENING 1955 CT COLONOGRAPHY - COLON CA SCREENING 1955 Colorectal Cancer Screening 1955 FIT - COLON CA SCREENING 1955 FLEX SIG - COLON CA SCREENING 1955 LIPID TESTING 1955 MEDICARE AWV 12 MONTHS 1955 HEPATITIS C SCREENING 10/14/1974 DTAP/TDAP/TD VACCINES (1 - Tdap) 10/19/1975 PNEUMOCOCCAL VACCINE 50+ (1 of 1 - PCV) 2006 ZOSTER VACCINE (1 of 2) 2006 COVID-19 VACCINE ( - 2023-2 5 season) 2024 DEPRESSION SCREENING 05/11/2024 INFLUENZA VACCINE (Season Ended) 2025 Respiratory Syncytial Virus (RSV) Vaccine Pt: or over 60 yrs (1 - 1-dose 75+ series) 10/19/2031 HEPATITIS B VACCINE Aged Out No longe r eligible based on patient's age to complete this topic HIB VACCINE Aged Out No longer eligi ble based on patient's age to complete this topic HPV VACCINE Aged Out No longer eligi ble based on patient's age to complete this topic MENINGOCOCCAL (Group B) VACC INE SHARED DECISION-MAKING Aged Out No longer eligibl e based on patient's age to complete this topic MENINGOCOCCAL GROUPS A/C/Y/W VACCINE Aged Out No longer eligible b ased on patient's age to complete this topic Insurance MEDICARE [facility] R[facility]K SELF PAY NO INSURANCE Member Subscriber Plan / Payer (Ef fective for All Dates) Name:Brice Kilpatrick Member ID:Not on file Relation to Subscriber:Not on file Name:BRICE KILPATRICK Subscriber ID:Not on file (Home) Address: [address] [place] [id number] Payer ID:Not on file Group ID:Not on file Type:Self Pay Address: [place], [place]
== END 2024-09-05 13:56 | disposition home or self-care (01) ==
PROVIDERS: PCP Hospitalist; Visit Provider Nurse Practitioner Family
DX: D64.9 Anemia, unspecified (principal)
CPT/HCPCS: 36415; 85025